=== PATIENT | female | born 1995 | race Caucasian/White ===

== ENCOUNTER 2024-08-18 19:16 | Emergency (ER) | payer OTHER ==
--- OUTSIDE RECORDS SUMMARY | 2024-08-18 19:24 | XMS REPORT | Continuity of Care Document ---
Author Name Unknown Address [address] [facility] [address] [place] [address] Organization [facility] [place] Address [address] [facility] [address] [place] [address] Care Team Providers Care Production Recorder Name Role Phone PCP, PATIENT DOES NOT HAVE A Primary Care Physic josee Unavailable GERARDO RODRIGUEZ Attending Clinician Unavail able Doctor Unassigned, [place] Attending Clinician U TELMA Delgado Attending Clinician UnavailTelma Calabrese CNM Attending Clinician [phone] Gerardo Duval Attending Clinician + Visit, Carlos Nurse Attending Clinician Unava ilSAMUEL Kirk Attending Clinician Unavailable SAMUEL ABDI Attending Clinician Unavailable Jin Samuel ARNETT Attending Clinician [phone] Telma Baltazar CNM Attending Clinician [phone] , [facility] Attending Clinician UnavailHal Roman Attending Clinician + [phone] DIONNE MAYORGA Attending Clinician Unav joseph Garza, Shirleyjomar Attending Clinician Bret Marie MD, Dionne Attending Clinician + Risk, Emp-Qunld-Is/High Attending Clinician Unav ailable MALDONADO, KISHAN N Attending Clinician Unavail able Freddie SALGADO, Kishan Garcia Attending Clinician [phone] ROSARIO LAZCANO Attending Clinician Unavailable ROSARIO LAZCANO Attending Clinician Unavailable Agusto EASON, Rosario Attending Clinician [phone] HAL GRAFF Attending Clinician Unavailable CLARK STRICKLAND Attending Clinician Unavailveena Strickland MD, Clark Benavides Attending Clinician [phone] Doctor Unassigned, [place] Attending Clinician U navailable CHARITY, Elver MCNEIL Attending Clinician Unavailable Charity PAC, K Dee Attending Clinician [phone] MARY CARMEN CHRISTOPHER Attending Clinician Unavailab keyona Christopher REHABILITATION COORDINATOR, Mary Carmen Tolentino Attending Clinician + [phone] Visit, [facility] Nurse Attending Clinician UnaAnnabelle Romo MD Attending Clinician [phone] Akinsipe WHCNP, Gerardo C Attending Clinician + Lab, [facility] Attending Clinician Unavailable ERENDIRA ROLLE Attending Clinician Unavailable Faculty, [facility] Mfjomar Attending Clinician UnaErendira Rhodes MD Attending Clinician [phone] Katrin Weller Attending Clinician [phone] SAGE SWEENEY III Attending Clinician Unavaila ble SAMUEL ABDI Admitting Clinician Unavailable Jin DO, Samuel Admitting Clinician [phone] Clark Strickland MD Admitting Clinician [phone] SAGE SWEENEY III Admitting Clinician Unavaila ble Payers Payer Name Policy Type Policy Number Effective Date Expirati on Date Source [facility] [id number] 2019 00:00:00 Problems Condition Name Condition Details Condition Category Status Onset Date Resolution Date Last Treatment Date Treating Clinician Comments Source History of tubal ligation History of tubal ligation Disease Active 12-26 00:00: 00 [facility] History of asthma History of asthma Disease Active 12-26 00:00: 00 [facility] Morbid obesity Morbid obesity Disease Active 06-22 00:00: 00 [facility] Anxiety and depression Anxiety and depression Disease Active 1-10 00:00: 00 [facility] Obesity affecting Obesity affecting Disease Active - 00:00: 00 [facility] Habitual aborter, antepartum Habitual aborter, antepartum Disease Active 11-19 00:00: 00 [facility] History of ADHD History of ADHD Disease Active 11-19 00:00: 00 [facility] History of ADHD History of ADHD Disease Active 11-19 00:00: 00 [facility] No known active problems No known active problems Disease [facility] Routine follow-up Routine follow-up Disease Resolve d 9-12 00:00: 00 2024-03-15 00:00:00 2024-03-15 13:45:55 [facility] Family history of autism in sibling Family history of autism in sibling Disease Resolve d 1-14 00:00: 00 2024-03-15 00:00:00 2024-03-15 13:45:46 Overview: Formattin g of this note might be different from the original. Brother, declines genetics [facility] Multiparou s Multiparou s Disease Resolve d 1-21 00:00: 00 2024-03-15 00:00:00 2024-03-15 13:45:42 [facility] Habitual aborter, antepartum Habitual aborter, antepartum Disease Resolve d 11-19 00:00: 00 2024-03-15 00:00:00 2024-03-15 13:45:25 [facility] 39 weeks gestation of 39 weeks gestation of Disease Resolve d 8-12 00:00: 00 2024-02-23 00:00:00 2024-02-23 14:50:34 [facility] Previous section Previous section Disease Resolve d 8-12 00:00: 00 2024-02-23 00:00:00 2024-02-23 14:50:08 [facility] Morbid obesity with body mass index of 40.0-49.9 Morbid obesity with body mass index of 40.0-49.9 Disease Resolve d 0 8-12 00:00: 00 2024-02-23 00:00:00 2024-02-23 14:50:25 [facility] Anemia of mother in , antepartum Anemia of mother in , antepartum Disease Resolve d 0 7-30 00:00: 00 2024-02-23 00:00:00 2024-02-23 14:50:33 [facility] GBS (group B Streptococ cus carrier), +RV culture, 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), +RV culture, currently Disease Resolve d 0 7-26 00:00: 00 2024-02-23 00:00:00 2024-02-23 14:50:30 [facility] Previous delivery affecting , antepartum Previous delivery affecting , antepartum Disease Resolve d - 00:00: 00 2024-02-23 00:00:00 2024-02-23 14:50:09 [facility] Uterine size-date discrepanc y in third trimester Uterine size-date discrepanc y in third trimester Disease Resolve d - 00:00: 00 2024-01-03 00:00:00 2024-01-03 11:31:33 [facility] 39 weeks gestation of 39 weeks gestation of Disease Resolve d 1- 00:00: 00 2023-06-22 00:00:00 2023-06-22 12:42:21 [facility] BMI 45.0-49.9, adult BMI 45.0-49.9, adult Disease Resolve d 1-19 00:00: 00 2023-06-22 00:00:00 2023-06-22 12:42:25 [facility] Need for Tdap vaccinatio n Need for Tdap vaccinatio n Disease Resolve d 2019-06- 00:00: 00 2023-06-22 00:00:00 2023-06-22 12:42:31 [facility] Tobacco use affecting in first trimester, antepartum Tobacco use affecting in first trimester, antepartum Disease Resolve d 7-06 00:00: 00 2023-06-22 00:00:00 2023-06-22 12:44:13 [facility] Supervisio n of high risk , antepartum Supervisio n of high risk , antepartum Disease Resolve d 609 00:00: 00 2023-06-22 00:00:00 2023-06-22 12:42:34 [facility] Primigravi da in third trimester Primigravi da in third trimester Disease Resolve d 6 00:00: 00 2023-06-22 00:00:00 2023-06-22 12:42:32 [facility] History of anxiety and depression History of anxiety and depression Disease Resolve d 6 00:00: 2023-06-22 00:00:00 2023-06-22 13:21:00 [facility] History of depression History of depression Disease Resolve d 11-19 00:00: 00 2023-06-22 00:00:00 2023-06-22 12:44:54 [facility] Class 1 obesity with body mass index (BMI) of 31.0 to 31.9 in adult, unspecifie d obesity type, unspecifie d whether serious comorbidit y present Class 1 obesity with body mass index (BMI) of 31.0 to 31.9 in adult, unspecifie d obesity type, unspecifie d whether serious comorbidit y present Disease Resolve d 609 00:00: 00 2023-06-22 00:00:00 2023-06-22 12:42:25 [facility] BMI 38.0-38.9, adult BMI 38.0-38.9, adult Disease Resolve d 6-09 00:00: 00 2023-06-22 00:00:00 2023-06-22 12:42:24 [facility] Allergies, Adverse Reactions, Alerts Allergy Name Allergy Type Status Severity Reaction(s) Onset Date Inactive Date Treating Clinician Comments Source NO KNOWN ALLERGIE S Drug Class Active [facility] Social History Social Habit Start Date Stop Date Quantity Comments Source ASSERTION 2023-05-06 00:00:00 [facility] Exposure to SARS-CoV-2 (event) Not sure [facility] Gender identity [facility] Sexual orientation [facility] History of Social function 2024-03-15 00:00:00 2024-03-15 00:00:00 [facility] Alcoholic beverage intake 2023-11-17 00:00:00 2023-11-17 00:00:00 Current non-drinker of alcohol (finding) [facility] Tobacco use and exposure 2023-11-02 00:00:00 2023-11-02 00:00:00 Smokeless tobacco non-user [facility] Cigarettes smoked current (pack per day) - Reported 2023-11-02 00:00:00 2023-11-02 00:00:00 [facility] Cigarette pack-years 2023-11-02 00:00:00 2023-11-02 00:00:00 [facility] Alcohol intake 2023-10-05 00:00:00 2023-10-05 00:00:00 Current non-drinker of alcohol (finding) [facility] History of tobacco use 2019-02-05 00:00:00 2023-02-05 00:00:00 Cigarette Smoker [facility] Sex assigned at 1995 00:00:00 1995 00:00:00 [facility] Smoking Status Start Date Stop Date Source Ex-smoker 2023-11-02 00:00:00 2023-11-02 00:00:00 [facility] Smokes tobacco daily 2013-03-16 00:00:00 [facility] Medications Ordered Medication Name Filled Medication Name Start Date Stop Date Current Medication? Ordering Clinician Indication Dosage Frequency Signature (SIG) Comments Components Source clotrimazol e 1 % solution 2023-0603 00:00: 00 Yes [id number] Apply to area(s) 2 (two) times daily. [facility] PARoxetine (PAXIL) tablet 20 mg 01-24 02:00: 00 Yes 20mg 20 mg, Oral, QHS, First dose on Tue01/24/24 at 2100, Until Discontinu ed, Routine [facility] docusate (COLACE) capsule 200 mg 01-23 14:00: 00 Yes 200mg 200 mg, Oral, DAILY, First dose on Tue01/24/24 at 0900, Until Discontinu ed, Routine [facility] simethicone (GAS RELIEF (SIMETHICON E)) chewable tablet 160 mg 01-23 01:00: 00 Yes 160mg 160 mg, Oral, TID, First dose on Tue01/23/24 at 2000, Until Discontinu ed, Routine [facility] ibuprofen (IBU) tablet 800 mg 01-23 00:45: 00 Yes 800mg 800 mg, Oral, Q8HA1, First dose on Tue01/23/24 at 1945, Until Discontinu ed, Routine [facility] vitamin w/FA (THRIVITE RX) tablet 01-23 00:00: 00 Yes [id number] 1{tbl} Take 1 tablet by mouth in the morning. [facility] docusate 100 mg capsule 01-23 00:00: 00 03-15 00:00 :00 No [id number] 200mg Take 2 capsules by mouth once daily as needed for Constipati on. [facility] ferrous sulfate 325 mg (65 mg iron) tablet 01-23 00:00: 00 03-15 00:00 :00 No [id number] 325mg Take 1 tablet by mouth in the morning. [facility] ibuprofen 800 mg tablet 01-23 00:00: 00 03-15 00:00 :00 No [id number] 800mg Take 1 tablet by mouth every 8 (eight) hours as needed (pain). Take with food or milk. [facility] acetaminoph en 500 mg tablet 01-23 00:00: 00 03-15 00:00 :00 No [id number] 1000mg Take 2 tablets by mouth every 8 (eight) hours as needed for Pain. [facility] oxyCODONE 5 mg immediate release tablet 01-23 00:00: 00 01-31 04:59 :00 No [id number] 5mg Take 1 tablet by mouth every 6 (six) hours as needed (pain) for up to 7 days. Indication s: acute pain [facility] ketorolac (TORADOL) injection 15 mg 01-23 00:00: 00 01-22 23:10 :00 No 15mg 15 mg, Slow IV Push, ONCE, 1 dose, On Tue01/23/24 at 1900, Routine [facility] acetaminoph en (TYLENOL) tablet 1,000 mg 01-22 22:30: 00 Yes 1000mg 1,000 mg, Oral, Q8H, First dose on Tue01/23/24 at 1730, Until Discontinu ed, Routine [facility] rho(D) immune globulin (RHOPHYLAC) injection 300 mcg 01-22 22:25: 18 Yes 300ug [facility] oxyCODONE immediate release tablet 5 mg 01-22 22:25: 13 Yes 5mg 5 mg, Oral, Q6HPRN, Starting on Tue01/23/24 at 1725, Until Discontinu ed, Routine, Pain (scale 7-10), 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 Restricted medication : OBYWHITE [facility] diphenhydrA MINE (BENADRYL) injection 25 mg 01-22 22:25: 13 Yes 25mg [facility] diphenhydrA MINE (BENADRYL) tablet 25 mg 01-22 22:25: 13 Yes 25mg [facility] ondansetron (ZOFRAN (PF)) injection 4 mg 01-22 22:25: 13 Yes 4mg [facility] bisacodyL (DULCOLAX) suppository 10 mg 01-22 22:25: 13 Yes 10mg [facility] magnesium hydroxide (MILK OF MAGNESIA) 400 mg/5 mL suspension 30 mL 01-22 22:25: 13 Yes 30mL [facility] lactated ringers IV infusion 1,000 mL 01-22 22:25: 13 Yes 1000mL [facility] metoclopram lewis HCl (REGLAN) injection 10 mg 01-22 21:11: 12 01-23 23:52 :35 No 10mg 10 mg, Slow IV Push, Q4HPRN, Starting on Tue01/23/24 at 1611, Until Tue01/24/24 at 1852, Routine, Nausea and Vomiting (N/V) [facility] naloxone (NARCAN) injection 0.4 mg 01-22 21:08: 30 01-24 21:07 :30 No .4mg 0.4 mg, Slow IV Push, PRN - SEE INSTRUCTIO NS, Starting on Tue01/23/24 at 1608, Until Tue01/25/24 at 1607, Routine, Sedation/R espiratory Depression , Analgesia Recovery [facility] diphenhydrA MINE (BENADRYL) injection 25 mg 01-22 21:08: 30 01-23 23:55 :37 No 25mg 25 mg, Slow IV Push, Q4HPRN, Starting on Tue01/23/24 at 1608, Until Tue01/24/24 at 1855, Routine, Itching [facility] acetaminoph en (TYLENOL) tablet 650 mg 01-22 20:38: 42 Yes 650mg 650 mg, Oral, Q6HPRN, Starting on Tue01/23/24 at 1538, Until Discontinu ed, Routine, Pain (scale 1-3) [facility] oxytocin (PITOCIN) 30 units in NS 500 mL IV infusion 01-22 20:38: 42 Yes 300mL/h 300 mL/hr, IV Infusion, SEE-INSTRU CTIONS, Starting on Tue01/23/24 at 1538, Start at 300 mL/hr for 1 hr then 150 mL/hr for 1 hr. For post delivery uterotonic . [facility] lactated ringers IV infusion 1,000 mL 01-22 13:30: 00 Yes 1000mL at 125 mL/hr, 1,000 mL, IV Infusion, CONTINUOUS , Starting on Tue01/23/24 at 0830, Until Discontinu ed, Routine [facility] acetaminoph en (TYLENOL) tablet 650 mg 01-22 13:30: 00 01-22 20:10 :00 No 650mg 650 mg, Oral, ONCE, 1 dose, On Tue01/23/24 at 0830, Routine [facility] ceFAZolin (ANCEF) 2,000 mg in NaCl 0.9% (NS) 100 mL MINI-BAG 01-22 13:24: 20 01-23 13:23 :20 No 2000mg 2,000 mg, IV Piggyback, O.R. 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 [facility] fluconazole (DIFLUCAN) 150 mg tablet 01-04 00:00: 00 01-05 04:59 :00 No [id number] 150mg Take 1 tablet by mouth once now for 1 dose. [facility] PARoxetine 20 mg tablet 6-24 00:00: 00 11-30 04:59 :00 No [id number] 20mg Take 1 tablet by mouth every morning for 360 days. [facility] PARoxetine 20 mg tablet 6-20 00:00: 00 12-04 00:00 :00 No [id number] 20mg Take 1 tablet by mouth in the morning. [facility] Nitrofurant oin&Nit. Macrocryst (MACROBID) 100 mg capsule 30 00:00: 00 11-20 04:59 :00 No 100mg Take 1 capsule by mouth in the morning and 1 capsule in the evening. Do all this for 10 days. [facility] fluconazole 150 mg tablet 24 00:00: 00 10-05 04:59 :00 No [id number] 150mg Take 1 tablet by mouth once now for 1 dose. [facility] PARoxetine 20 mg tablet 3-05 00:00: 00 11-26 00:00 :00 No [id number] 20mg Take 1 tablet by mouth in the morning for 180 days. [facility] PNV 67-iron ps-folate no.1-dha (VITAFOL ULTRA) 29 mg iron- 1 mg-200 mg Cap 07-13 00:00: 00 01-23 00:00 :00 No [id number] 1{tbl} Take 1 tablet by mouth in the morning for 210 days. [facility] PARoxetine 10 mg tablet 07-13 00:00: 00 08-15 00:00 :00 No [id number] 20mg Take 2 tablets by mouth in the morning for 180 days. [facility] hydrOXYzine 10 mg tablet 07-13 00:00: 00 08-06 05:59 :00 No [id number] 109 10mg Take 1 tablet by mouth every 6 (six) hours for 90 doses. [facility] vit no.124/iron /folic ( VITAMIN ORAL) 06-22 13:05: 22 01-23 00:00 :00 No [id number] Take by mouth. [facility] PARoxetine 20 mg tablet 06-22 12:42: 55 06-22 00:00 :00 No 20mg Take 20 mg by mouth at bedtime. [facility] clindamycin (CLEOCIN HCL) capsule 450 mg 12-21 05:15: 00 12-21 04:47 :00 No 450mg 450 mg, Oral, ONCE, 1 dose, On Tue12/21/22 at 0015, JILLIAN
Re ason for Anti-Infec tive: Documented Infection< br>Documen luis a Infection Site: Skin / Soft Tissue
Duration of Therapy: 10 days
Re stricted use approved by: ED PROVIDER [facility] ibuprofen (IBU) tablet 600 mg 12-21 04:30: 00 12-21 04:47 :00 No 600mg 600 mg, Oral, ONCE, 1 dose, On Tue12/20/22 at 2330, JILLIAN [facility] ibuprofen 600 mg tablet 12-20 00:00: 00 06-22 00:00 :00 No [id number] 600mg Take 1 tablet by mouth every 6 (six) hours as needed for Pain (scale 4-6). [facility] mupirocin 2 % ointment 12-20 00:00: 00 06-22 00:00 :00 No [id number] Apply to area(s) 3 (three) times daily. [facility] clindamycin 150 mg capsule 12-20 00:00: 00 12-31 04:59 :00 No [id number] 450mg Take 3 capsules by mouth in the morning and 3 capsules at noon and 3 capsules in the evening. Do all this for 10 days. [facility] ascorbic acid (vitamin C) (VITAMIN C) tablet 500 mg 07-06 20:00: 00 Yes 500mg 500 mg, Oral, TID, First dose on Tue07/06/20 at 1400, Until Discontinu ed, Routine [facility] PARoxetine 20 mg tablet 07-06 19:27: 07 Yes 20mg Take 20 mg by mouth at bedtime. [facility] ferrous sulfate tablet 325 mg 07-06 18:00: 00 Yes 325mg 325 mg, Oral, TID MEALS, First dose on 07/06/20 at 1200, Until Discontinu ed, Routine [facility] foLIC acid (FOLATE) tablet 1 mg 07-06 15:00: 00 Yes 1mg 1 mg, Oral, DAILY, First dose on 07/06/20 at 0900, Until Discontinu ed, Routine [facility] medroxyPROG ESTERone (DEPO-PROVE RA) injection 150 mg 07-06 14:30: 00 07-06 15:21 :00 No 150mg 150 mg, Intramuscu lar, ONCE, 1 dose, 07/06/20 at 0830, Routine [facility] guanFACINE ER 2 mg tablet 07-06 14:21: 47 07-06 00:00 :00 No Take by mouth at bedtime. [facility] PARoxetine 20 mg tablet 07-06 13:27: 07 Yes 20mg Take 20 mg by mouth at bedtime. [facility] PARoxetine (PAXIL) tablet 20 mg 07-06 03:00: 00 Yes 20mg 20 mg, Oral, QHS, First dose on 07/05/20 at 2100, Until Discontinu ed, Routine [facility] vitamin w/FA tablet 07-06 00:00: 00 Yes [id number] 1{tbl} Take 1 tablet by mouth daily. [facility] ascorbic acid, vitamin C, 500 mg tablet 07-06 00:00: 00 06-22 00:00 :00 No [id number] 500mg Take 1 tablet by mouth 3 (three) times daily. [facility] foLIC acid 1 mg tablet 07-06 00:00: 00 06-22 00:00 :00 No [id number] 1mg Take 1 tablet by mouth daily. [facility] ferrous sulfate 325 mg (65 mg iron) tablet 07-06 00:00: 06-22 00:00 :00 No [id number] 325mg Take 1 tablet by mouth 3 (three) times daily with meals. [facility] vitamin w/FA tablet 07-06 00:00: 06-22 00:00 :00 No [id number] 1{tbl} Take 1 tablet by mouth daily. [facility] docusate calcium 240 mg capsule 07-06 00:00: 00 06-22 00:00 :00 No [id number] 240mg Take 1 capsule by mouth once daily as needed for Constipati on. [facility] ibuprofen 600 mg tablet 07-06 00:00: 06-22 00:00 :00 No [id number] 600mg Take 1 tablet by mouth every 6 (six) hours as needed (Pain). Take with food or milk. [facility] HYDROcodone -acetaminop hen 5-325 mg tablet 07-06 00:00: 00 06-22 00:00 :00 No [id number] 1{tbl} Take 1 tablet by mouth every 6 (six) hours as needed (Pain scale above 4) for up to 10 doses. Do not exceed 3 grams of acetaminop hen in 24 hours. Indication s: acute pain [facility] rho(D) immune globulin (RHOGAM) syringe 300 mcg 07-05 15:25: 52 Yes 300ug 300 mcg, Intramuscu lar, ONCE, For 1 dose, Conditiona l, Routine [facility] ondansetron (ZOFRAN (PF)) injection 4 mg 07-05 15:25: 41 Yes 4mg 4 mg, Slow IV Push, Q8HPRN, Starting 07/05/20 at 0925, Until Discontinu ed, Routine, Nausea and Vomiting (N/V) [facility] simethicone (GAS RELIEF (SIMETHICON E)) chewable tablet 160 mg 07-05 15:25: 41 Yes 160mg 160 mg, Oral, PC+HSPRN, Starting 07/05/20 at 0925, Until Discontinu ed, Routine, Gas [facility] magnesium hydroxide (MILK OF MAGNESIA) 400 mg/5 mL suspension 30 mL 07-05 15:25: 41 Yes 30mL 30 mL, Oral, QDAILYPRN, Starting 07/05/20 at 0925, Until Discontinu ed, Routine, Constipati on [facility] HYDROcodone -acetaminop hen (NORCO 5) 5-325 mg tablet 2 tablet 07-05 15:25: 40 Yes 2{tbl} 2 tablet, Oral, Q6HPRN, Starting 07/05/20 at 0925, Until Discontinu ed, Routine, Pain (scale 7-10), If uncontroll ed by Ibuprofen [facility] HYDROcodone -acetaminop hen (NORCO 5) 5-325 mg tablet 1 tablet 07-05 15:25: 40 Yes 1{tbl} 1 tablet, Oral, Q6HPRN, Starting 07/05/20 at 0925, Until Discontinu ed, Routine, Pain (scale 4-6), If uncontroll ed by Ibuprofen [facility] ibuprofen (IBU) tablet 600 mg 07-05 15:25: 40 Yes 600mg 600 mg, Oral, Q6HPRN, Starting 07/05/20 at 0925, Until Discontinu ed, Routine, Pain (scale 1-3) [facility] diphenhydrA MINE-0.9 % sod.chlr (BENADRYL) 25 mg/50 mL piggyback 25 mg 07-05 15:25: 40 Yes 25mg 25 mg, IV Piggyback, Q6HPRN, 1 dose, Starting 07/05/20 at 0925, Until Discontinu ed, 50 mL [facility] diphenhydrA MINE (BENADRYL) tablet 25 mg 07-05 15:25: 40 Yes 25mg 25 mg, Oral, Q6HPRN, Starting 07/05/20 at 0925, Until Discontinu ed, Routine, Sleep, Itching [facility] bisacodyL (DULCOLAX) suppository 10 mg 07-05 15:25: 40 Yes 10mg 10 mg, Rectal, QDAILYPRN, Starting 07/05/20 at 0925, Until Discontinu ed, Routine, Constipati on [facility] docusate calcium (SURFAK) capsule 240 mg 07-05 15:25: 40 Yes 240mg 240 mg, Oral, QDAILYPRN, Starting 07/05/20 at 0925, Until Discontinu ed, Routine, Constipati on [facility] naloxone (NARCAN) injection 0.4 mg 07-05 11:53: 27 07-08 00:14 :19 No .4mg 0.4 mg, Slow IV Push, PRN - SEE INSTRUCTIO NS, Starting 07/05/20 at 0553, Until 07/07/20 at 1814, Routine, Analgesia Recovery [facility] diphenhydrA MINE (BENADRYL) injection 25 mg 07-05 11:53: 27 07-07 00:55 :37 No 25mg 25 mg, Slow IV Push, Q4HPRN, Starting 07/05/20 at 0553, Until 07/06/20 at 1855, Routine, Itching [facility] ketorolac (TORADOL) injection 30 mg 07-05 11:53: 26 07-05 12:38 :00 No 30mg 30 mg, Slow IV Push, PRN, 1 dose, Starting 07/05/20 at 0553, Until Discontinu ed, Routine, Pain (scale 7-10)
F aculty member approving Restricted medication : KIKA FOFANA [facility] LR 1000 mL + oxytocin 20 units IV Solution 07-05 10:45: 00 07-05 15:25 :53 No 2mU/min at 6 mL/hr, IV Infusion, CONTINUOUS , Starting 07/05/20 at 0445, Until 07/05/20 at 0925, JILLIAN [facility] sodium citrate-cit alban acid (BICITRA) 500-334 mg/5 mL solution 30 mL 07-05 10:35: 32 07-05 10:56 :00 No 30mL 30 mL, Oral, PRE-PROCED URE ONCE, 1 dose, Starting 07/05/20 at 0435, Until Discontinu ed, Routine, Surgery [facility] ceFAZolin in dextrose (iso-os) (ANCEF) 2 gram/100 mL Piggyback 2 g 07-05 10:35: 32 07-05 10:57 :00 No 2000mg 2 g (2,000 mg), IV Piggyback, O.R. HOLDING ONCE, 1 dose, Starting 07/05/20 at 0435, Until Discontinu ed, 100 mL
Reas on for Anti-Infec tive: Surgical Prophylaxi s
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
Duration of therapy: within 24 hours of surgery [facility] butorphanol (STADOL) injection 1 mg 07-04 17:45: 00 07-04 16:37 :00 No 1mg 1 mg, IV Push, ONCE, 1 dose, 07/04/20 at 1145, Routine [facility] LR 1000 mL + oxytocin 20 units IV Solution 07-04 14:25: 52 07-05 15:25 :53 No 2mU/min at 6-120 mL/hr, IV Infusion, TITRATE, Starting 07/04/20 at 0825, Until 07/05/20 at 0925, [facility] 1 mg 07-04 06:47: 00 07-04 07:07 :00 No 1mg 1 mg, IV Push, ONCE, 1 dose, 07/04/20 at 0100, Routine [facility] D5W-LR IV infusion 1,000 mL 07-04 01:15: 00 07-05 15:25 :53 No 1000mL at 125 mL/hr, IV Infusion, CONTINUOUS , Starting Liya 07/03/20 at 1915, Until 07/05/20 at 0925, Routine [facility] sodium citrate-cit alban acid (BICITRA) 500-334 mg/5 mL solution 30 mL 07-04:01: 07-05 07:11 :00 No 30mL 30 mL, Oral, PRE-PROCED URE ONCE, 1 dose, Starting Liya 07/03/20 at 1901, Until Discontinu ed, Routine, Surgery/Pr ocedure [facility] lactated ringers IV infusion 500 mL 07-04 01:01: 07-05 15:25 :53 No 500mL at 999 mL/hr, 500 mL, IV Infusion, PRN - SEE INSTRUCTIO NS, Starting Liya 07/03/20 at 1901, Until 07/05/20 at 0925, Routine [facility] amphetamine -dextroamph etamine (ADDERALL XR) 30 mg 24 hr capsule 2019-06 14:53: 44 05-19 00:00 :00 No 30mg Take 30 mg by mouth every morning. [facility] amphetamine -dextroamph etamine (ADDERALL XR) 30 mg 24 hr capsule 12-02 14:42: 55 Yes 30mg Take 30 mg by mouth every morning. [facility] vit 33-iron-fol ic-dha (SELECT-OB + DHA) 29 mg iron-1 mg -250 mg combo pack 11-27 00:00: 00 07-06 00:00 :00 No [id number] 1{packe t} Take 1 Packet by mouth daily. [facility] terconazole 80 mg vaginal suppository 11-21 00:00: 00 11-25 04:59 :00 No [id number] 80mg Insert 1 Suppositor y into vagina at bedtime for 3 days. [facility] guanFACINE ER 2 mg tablet 11-19 16:08: 12 Yes Take by mouth at bedtime. [facility] PARoxetine 20 mg tablet 11-19 16:08: 12 Yes 20mg Take 20 mg by mouth at bedtime. [facility] amphetamine -dextroamph etamine (ADDERALL XR) 30 mg 24 hr capsule 11-19 16:08: 12 Yes 30mg Take 30 mg by mouth every morning. [facility] traMADol (ULTRAM) 50 mg tablet 2018-06 2-15 00:00: 00 11-19 00:00 :00 No [id number] 50mg Take 1 tablet by mouth every 8 (eight) hours as needed for Pain (scale 4-6). [facility] No known medications No Un [facility] Immunizations Ordered Immunization Name Filled Immunization Name Date Status Comments Source Flu Injectable MDCK Pres-Free (FLUCELVAX) 2024-03-15 00:00:00 Completed [facility] HPV9 2024-01-24 00:00:00 Completed [facility] HPV9 2024-01-24 00:00:00 Completed [facility] Influenza Virus Vaccine Quad .5 mL IM 6+ MO (FLUZONE/FLULAVAL/F LUARIX) 2020-05-19 00:00:00 Completed [facility] Influenza Virus Vaccine Quad .5 mL IM 6+ MO (FLUZONE/FLULAVAL/F LUARIX) 2020-05-19 00:00:00 Completed [facility] Influenza Virus Vaccine Quad .5 mL IM 6+ MO (FLUZONE/FLULAVAL/F LUARIX) 2020-05-19 00:00:00 Completed [facility] Influenza Virus Vaccine Quad .5 mL IM 6+ MO 2020-05-19 00:00:00 Completed [facility] Influenza Virus Vaccine Quad .5 mL IM 6+ MO 2020-05-19 00:00:00 Completed [facility] Influenza Virus Vaccine Quad .5 mL IM 6+ MO 2020-05-19 00:00:00 Completed [facility] Influenza Virus Vaccine Quad .5 mL IM 6+ MO 2020-05-19 00:00:00 Completed [facility] Influenza Virus Vaccine Quad .5 mL IM 6+ MO 2020-05-19 00:00:00 Completed [facility] Influenza Virus Vaccine Quad .5 mL IM 6+ MO 2020-05-19 00:00:00 Completed [facility] Influenza Virus Vaccine Quad .5 mL IM 6+ MO 2020-05-19 00:00:00 Completed [facility] Influenza Virus Vaccine Quad .5 mL IM 6+ MO 2020-05-19 00:00:00 Completed [facility] Influenza Virus Vaccine Quad .5 mL IM 6+ MO 2020-05-19 00:00:00 Completed [facility] Influenza Virus Vaccine Quad .5 mL IM 6+ MO 2020-05-19 00:00:00 Completed [facility] Influenza Virus Vaccine Quad .5 mL IM 6+ MO 2020-05-19 00:00:00 Completed [facility] Influenza Virus Vaccine Quad .5 mL IM 6+ MO 2020-05-19 00:00:00 Completed [facility] Influenza Virus Vaccine Quad .5 mL IM 6+ MO 2020-05-19 00:00:00 Completed [facility] TDAP 2020-04-21 00:00:00 Completed [facility] TDAP 2020-04-21 00:00:00 Completed [facility] TDAP 2020-04-21 00:00:00 Completed [facility] TDAP 2020-04-21 00:00:00 Completed [facility] TDAP 2020-04-21 00:00:00 Completed [facility] TDAP 2020-04-21 00:00:00 Completed [facility] TDAP 2020-04-21 00:00:00 Completed [facility] TDAP 2020-04-21 00:00:00 Completed [facility] TDAP 2020-04-21 00:00:00 Completed [facility] TDAP 2020-04-21 00:00:00 Completed [facility] [place] TDAP 2020-04-21 00:00:00 Completed [facility] TDAP 2020-04-21 00:00:00 Completed [facility] TDAP 2020-04-21 00:00:00 Completed [facility] TDAP 2020-04-21 00:00:00 Completed [facility] [place] TDAP 2020-04-21 00:00:00 Completed [facility] TDAP 2020-04-21 00:00:00 Completed [facility] TDAP 2020-04-21 00:00:00 Completed [facility] TDAP 2020-04-21 00:00:00 Completed [facility] HPV9 2017-12-02 00:00:00 Completed TDAP 2017-12-02 00:00:00 Completed HPV9 2017-12-02 00:00:00 Completed TDAP 2017-12-02 00:00:00 Completed HPV9 2017-12-02 00:00:00 Completed TDAP 2017-12-02 00:00:00 Completed HPV9 2017-12-02 00:00:00 Completed [facility] TDAP 2017-12-02 00:00:00 Completed [facility] HPV9 2017-12-02 00:00:00 Completed [facility] TDAP 2017-12-02 00:00:00 Completed [facility] HPV9 2017-12-02 00:00:00 Completed [facility] TDAP 2017-12-02 00:00:00 Completed [facility] HPV9 2017-12-02 00:00:00 Completed [facility] TDAP 2017-12-02 00:00:00 Completed [facility] HPV9 2017-12-02 00:00:00 Completed [facility] TDAP 2017-12-02 00:00:00 Completed [facility] HPV9 2017-12-02 00:00:00 Completed [facility] TDAP 2017-12-02 00:00:00 Completed [facility] HPV9 2017-12-02 00:00:00 Completed [facility] TDAP 2017-12-02 00:00:00 Completed [facility] HPV9 2017-12-02 00:00:00 Completed [facility] TDAP 2017-12-02 00:00:00 Completed [facility] HPV9 2017-12-02 00:00:00 Completed [facility] TDAP 2017-12-02 00:00:00 Completed [facility] HPV9 2017-12-02 00:00:00 Completed [facility] TDAP 2017-12-02 00:00:00 Completed [facility] HPV9 2017-12-02 00:00:00 Completed [facility] TDAP 2017-12-02 00:00:00 Completed [facility] HPV9 2017-12-02 00:00:00 Completed [facility] TDAP 2017-12-02 00:00:00 Completed [facility] HPV9 2017-12-02 00:00:00 Completed [facility] TDAP 2017-12-02 00:00:00 Completed [facility] TDAP Unknown Completed [facility] Influenza Virus Vaccine Quad .5 mL IM 6+ MO (FLUZONE/FLULAVAL/F LUARIX) Unknown Completed [facility] HPV9 Unknown Completed [facility] TDAP Unknown Completed [facility] Influenza Virus Vaccine Quad .5 mL IM 6+ MO (FLUZONE/FLULAVAL/F LUARIX) Unknown Completed [facility] HPV9 Unknown Completed [facility] TDAP Unknown Completed [facility] Influenza Virus Vaccine Quad .5 mL IM 6+ MO (FLUZONE/FLULAVAL/F LUARIX) Unknown Completed [facility] HPV9 Unknown Completed [facility] TDAP Unknown Completed [facility] Influenza Virus Vaccine Quad .5 mL IM 6+ MO (FLUZONE/FLULAVAL/F LUARIX) Unknown Completed [facility] HPV9 Unknown Completed [facility] TDAP Unknown Completed [facility] Influenza Virus Vaccine Quad .5 mL IM 6+ MO (FLUZONE/FLULAVAL/F LUARIX) Unknown Completed [facility] HPV9 Unknown Completed [facility] TDAP Unknown Completed [facility] Influenza Virus Vaccine Quad .5 mL IM 6+ MO (FLUZONE/FLULAVAL/F LUARIX) Unknown Completed [facility] HPV9 Unknown Completed [facility] TDAP Unknown Completed [facility] Influenza Virus Vaccine Quad .5 mL IM 6+ MO (FLUZONE/FLULAVAL/F LUARIX) Unknown Completed [facility] HPV9 Unknown Completed [facility] TDAP Unknown Completed [facility] Influenza Virus Vaccine Quad .5 mL IM 6+ MO (FLUZONE/FLULAVAL/F LUARIX) Unknown Completed [facility] HPV9 Unknown Completed [facility] TDAP Unknown Completed [facility] Influenza Virus Vaccine Quad .5 mL IM 6+ MO (FLUZONE/FLULAVAL/F LUARIX) Unknown Completed [facility] HPV9 Unknown Completed [facility] TDAP Unknown Completed [facility] Influenza Virus Vaccine Quad .5 mL IM 6+ MO (FLUZONE/FLULAVAL/F LUARIX) Unknown Completed [facility] HPV9 Unknown Completed [facility] TDAP Unknown Completed [facility] Influenza Virus Vaccine Quad .5 mL IM 6+ MO (FLUZONE/FLULAVAL/F LUARIX) Unknown Completed [facility] HPV9 Unknown Completed [facility] TDAP Unknown Completed [facility] Influenza Virus Vaccine Quad .5 mL IM 6+ MO (FLUZONE/FLULAVAL/F LUARIX) Unknown Completed [facility] HPV9 Unknown Completed [facility] TDAP Unknown Completed [facility] Influenza Virus Vaccine Quad .5 mL IM 6+ MO (FLUZONE/FLULAVAL/F LUARIX) Unknown Completed [facility] HPV9 Unknown Completed [facility] TDAP Unknown Completed [facility] Influenza Virus Vaccine Quad .5 mL IM 6+ MO (FLUZONE/FLULAVAL/F LUARIX) Unknown Completed [facility] HPV9 Unknown Completed [facility] Influenza Virus Vaccine Quad .5 mL IM 6+ MO (FLUZONE/FLULAVAL/F LUARIX) Unknown Completed [facility] HPV9 Unknown Completed [facility] TDAP Unknown Completed [facility] Influenza Virus Vaccine Quad .5 mL IM 6+ MO (FLUZONE/FLULAVAL/F LUARIX) Unknown Completed [facility] HPV9 Unknown Completed [facility] TDAP Unknown Completed [facility] Influenza Virus Vaccine Quad .5 mL IM 6+ MO (FLUZONE/FLULAVAL/F LUARIX) Unknown Completed [facility] HPV9 Unknown Completed [facility] TDAP Unknown Completed [facility] TDAP Unknown Completed [facility] Influenza Virus Vaccine Quad .5 mL IM 6+ MO (FLUZONE/FLULAVAL/F LUARIX) Unknown Completed [facility] HPV9 Unknown Completed [facility] TDAP Unknown Completed [facility] Influenza Virus Vaccine Quad .5 mL IM 6+ MO (FLUZONE/FLULAVAL/F LUARIX) Unknown Completed [facility] HPV9 Unknown Completed [facility] TDAP Unknown Completed [facility] Influenza Virus Vaccine Quad .5 mL IM 6+ MO (FLUZONE/FLULAVAL/F LUARIX) Unknown Completed [facility] HPV9 Unknown Completed [facility] TDAP Unknown Completed [facility] Influenza Virus Vaccine Quad .5 mL IM 6+ MO (FLUZONE/FLULAVAL/F LUARIX) Unknown Completed [facility] HPV9 Unknown Completed [facility] TDAP Unknown Completed [facility] Influenza Virus Vaccine Quad .5 mL IM 6+ MO (FLUZONE/FLULAVAL/F LUARIX) Unknown Completed [facility] HPV9 Unknown Completed [facility] TDAP Unknown Completed [facility] Influenza Virus Vaccine Quad .5 mL IM 6+ MO (FLUZONE/FLULAVAL/F LUARIX) Unknown Completed [facility] HPV9 Unknown Completed [facility] TDAP Unknown Completed [facility] Influenza Virus Vaccine Quad .5 mL IM 6+ MO (FLUZONE/FLULAVAL/F LUARIX) Unknown Completed [facility] HPV9 Unknown Completed [facility] TDAP Unknown Completed [facility] Influenza Virus Vaccine Quad .5 mL IM 6+ MO (FLUZONE/FLULAVAL/F LUARIX) Unknown Completed [facility] HPV9 Unknown Completed [facility] TDAP Unknown Completed [facility] Influenza Virus Vaccine Quad .5 mL IM 6+ MO (FLUZONE/FLULAVAL/F LUARIX) Unknown Completed [facility] HPV9 Unknown Completed [facility] TDAP Unknown Completed [facility] Influenza Virus Vaccine Quad .5 mL IM 6+ MO (FLUZONE/FLULAVAL/F LUARIX) Unknown Completed [facility] HPV9 Unknown Completed [facility] TDAP Unknown Completed [facility] Influenza Virus Vaccine Quad .5 mL IM 6+ MO (FLUZONE/FLULAVAL/F LUARIX) Unknown Completed [facility] HPV9 Unknown Completed [facility] TDAP Unknown Completed [facility] Influenza Virus Vaccine Quad .5 mL IM 6+ MO (FLUZONE/FLULAVAL/F LUARIX) Unknown Completed [facility] HPV9 Unknown Completed [facility] TDAP Unknown Completed [facility] Influenza Virus Vaccine Quad .5 mL IM 6+ MO (FLUZONE/FLULAVAL/F LUARIX) Unknown Completed [facility] HPV9 Unknown Completed [facility] TDAP Unknown Completed [facility] Influenza Virus Vaccine Quad .5 mL IM 6+ MO (FLUZONE/FLULAVAL/F LUARIX) Unknown Completed [facility] HPV9 Unknown Completed [facility] TDAP Unknown Completed [facility] Influenza Virus Vaccine Quad .5 mL IM 6+ MO (FLUZONE/FLULAVAL/F LUARIX) Unknown Completed [facility] HPV9 Unknown Completed [facility] TDAP Unknown Completed [facility] Influenza Virus Vaccine Quad .5 mL IM 6+ MO (FLUZONE/FLULAVAL/F LUARIX) Unknown Completed [facility] HPV9 Unknown Completed [facility] TDAP Unknown Completed [facility] Influenza Virus Vaccine Quad .5 mL IM 6+ MO (FLUZONE/FLULAVAL/F LUARIX) Unknown Completed [facility] HPV9 Unknown Completed [facility] TDAP Unknown Completed [facility] Influenza Virus Vaccine Quad .5 mL IM 6+ MO (FLUZONE/FLULAVAL/F LUARIX) Unknown Completed [facility] HPV9 Unknown Completed [facility] TDAP Unknown Completed [facility] Influenza Virus Vaccine Quad .5 mL IM 6+ MO (FLUZONE/FLULAVAL/F LUARIX) Unknown Completed [facility] HPV9 Unknown Completed [facility] TDAP Unknown Completed [facility] Influenza Virus Vaccine Quad .5 mL IM 6+ MO (FLUZONE/FLULAVAL/F LUARIX) Unknown Completed [facility] HPV9 Unknown Completed [facility] TDAP Unknown Completed [facility] Influenza Virus Vaccine Quad .5 mL IM 6+ MO (FLUZONE/FLULAVAL/F LUARIX) Unknown Completed [facility] HPV9 Unknown Completed [facility] TDAP Unknown Completed [facility] Influenza Virus Vaccine Quad .5 mL IM 6+ MO (FLUZONE/FLULAVAL/F LUARIX) Unknown Completed [facility] HPV9 Unknown Completed [facility] TDAP Unknown Completed [facility] Influenza Virus Vaccine Quad .5 mL IM 6+ MO (FLUZONE/FLULAVAL/F LUARIX) Unknown Completed [facility] HPV9 Unknown Completed [facility] TDAP Unknown Completed [facility] Influenza Virus Vaccine Quad .5 mL IM 6+ MO (FLUZONE/FLULAVAL/F LUARIX) Unknown Completed [facility] HPV9 Unknown Completed [facility] TDAP Unknown Completed [facility] Influenza Virus Vaccine Quad .5 mL IM 6+ MO (FLUZONE/FLULAVAL/F LUARIX) Unknown Completed [facility] HPV9 Unknown Completed [facility] TDAP Unknown Completed [facility] Influenza Virus Vaccine Quad .5 mL IM 6+ MO (FLUZONE/FLULAVAL/F LUARIX) Unknown Completed [facility] HPV9 Unknown Completed [facility] TDAP Unknown Completed [facility] Influenza Virus Vaccine Quad .5 mL IM 6+ MO (FLUZONE/FLULAVAL/F LUARIX) Unknown Completed [facility] HPV9 Unknown Completed [facility] TDAP Unknown Completed [facility] Influenza Virus Vaccine Quad .5 mL IM 6+ MO (FLUZONE/FLULAVAL/F LUARIX) Unknown Completed [facility] HPV9 Unknown Completed [facility] TDAP Unknown Completed [facility] Influenza Virus Vaccine Quad .5 mL IM 6+ MO (FLUZONE/FLULAVAL/F LUARIX) Unknown Completed [facility] HPV9 Unknown Completed [facility] TDAP Unknown Completed [facility] Influenza Virus Vaccine Quad .5 mL IM 6+ MO (FLUZONE/FLULAVAL/F LUARIX) Unknown Completed [facility] HPV9 Unknown Completed [facility] Influenza Virus Vaccine Quad .5 mL IM 6+ MO (FLUZONE/FLULAVAL/F LUARIX) Unknown Completed [facility] HPV9 Unknown Completed [facility] TDAP Unknown Completed [facility] Vital Signs Vital Name Observation Time Observation Value Comments S ource Systolic blood pressure 2024-03-15 18:29:00 125 mm[Hg] [facility] Diastolic blood pressure 2024-03-15 18:29:00 76 mm[Hg] [facility] Heart rate 2024-03-15 18:29:00 96 /min [facility] Body temperature 2024-03-15 18:29:00 36.83 [facility] Respiratory rate 2024-03-15 18:29:00 20 /min [facility] Body height 2024-03-15 18:29:00 165.1 cm [facility] Body weight 2024-03-15 18:29:00 113.428 kg [facility] BMI 2024-03-15 18:29:00 41.61 kg/m2 [facility] Systolic blood pressure 2024-02-23 19:27:00 124 mm[Hg] [facility] Diastolic blood pressure 2024-02-23 19:27:00 74 mm[Hg] [facility] Heart rate 2024-02-23 19:27:00 98 /min [facility] Body temperature 2024-02-23 19:27:00 36.28 [facility] Respiratory rate 2024-02-23 19:27:00 18 /min [facility] Body height 2024-02-23 19:27:00 165.1 cm [facility] Body weight 2024-02-23 19:27:00 112.038 kg [facility] BMI 2024-02-23 19:27:00 41.10 kg/m2 [facility] Systolic blood pressure 2024-01-30 19:16:00 118 mm[Hg] [facility] Diastolic blood pressure 2024-01-30 19:16:00 71 mm[Hg] [facility] Heart rate 2024-01-30 19:16:00 84 /min [facility] Body temperature 2024-01-30 19:16:00 36.72 [facility] Respiratory rate 2024-01-30 19:16:00 18 /min [facility] Body height 2024-01-30 19:16:00 165.1 cm [facility] Body weight 2024-01-30 19:16:00 117.436 kg [facility] BMI 2024-01-30 19:16:00 43.08 kg/m2 [facility] Systolic blood pressure 2024-01-24 20:21:00 104 mm[Hg] [facility] Diastolic blood pressure 2024-01-24 20:21:00 56 mm[Hg] [facility] Heart rate 2024-01-24 20:21:00 102 /min [facility] Body temperature 2024-01-24 20:21:00 36.83 [facility] Respiratory rate 2024-01-24 20:21:00 18 /min [facility] Oxygen saturation in Arterial blood by Pulse oximetry 2024-01-24 20:21:00 98 /min [facility] Body height 2024-01-23 12:51:00 165.1 cm [facility] Body weight 2024-01-23 12:51:00 117.527 kg [facility] BMI 2024-01-23 12:51:00 43.12 kg/m2 [facility] Systolic blood pressure 2024-01-23 15:00:00 123 mm[Hg] [facility] Diastolic blood pressure 2024-01-23 15:00:00 76 mm[Hg] [facility] Heart rate 2024-01-23 15:00:00 97 /min [facility] Oxygen saturation in Arterial blood by Pulse oximetry 2024-01-23 15:00:00 98 /min [facility] Respiratory rate 2024-01-23 14:00:00 18 /min [facility] Body temperature 2024-01-23 13:00:00 36.56 [facility] Body height 2024-01-23 12:51:00 165.1 cm [facility] Body weight 2024-01-23 12:51:00 117.527 kg [facility] BMI 2024-01-23 12:51:00 43.12 kg/m2 [facility] Systolic blood pressure 2024-01-18 15:25:00 121 mm[Hg] [facility] Diastolic blood pressure 2024-01-18 15:25:00 78 mm[Hg] [facility] Heart rate 2024-01-18 15:25:00 100 /min [facility] Body temperature 2024-01-18 15:25:00 36.61 [facility] Respiratory rate 2024-01-18 15:25:00 18 /min [facility] Body height 2024-01-18 15:25:00 165.1 cm [facility] Body weight 2024-01-18 15:25:00 116.716 kg [facility] BMI 2024-01-18 15:25:00 42.82 kg/m2 [facility] Systolic blood pressure 2024-01-10 15:57:00 127 mm[Hg] [facility] Diastolic blood pressure 2024-01-10 15:57:00 74 mm[Hg] [facility] Heart rate 2024-01-10 15:57:00 97 /min [facility] Body temperature 2024-01-10 15:57:00 36.72 [facility] Respiratory rate 2024-01-10 15:57:00 18 /min [facility] Body height 2024-01-10 15:57:00 165.1 cm [facility] Body weight 2024-01-10 15:57:00 116.149 kg [facility] BMI 2024-01-10 15:57:00 42.61 kg/m2 [facility] Systolic blood pressure 2024-01-03 15:18:00 129 mm[Hg] [facility] Diastolic blood pressure 2024-01-03 15:18:00 75 mm[Hg] [facility] Heart rate 2024-01-03 15:18:00 92 /min [facility] Body temperature 2024-01-03 15:18:00 36.83 [facility] Respiratory rate 2024-01-03 15:18:00 18 /min [facility] Body height 2024-01-03 15:18:00 165.1 cm [facility] Body weight 2024-01-03 15:18:00 117.68 kg [facility] BMI 2024-01-03 15:18:00 43.17 kg/m2 [facility] Systolic blood pressure 2023-12-27 21:19:00 106 mm[Hg] [facility] Diastolic blood pressure 2023-12-27 21:19:00 75 mm[Hg] [facility] Heart rate 2023-12-27 21:19:00 102 /min [facility] Body temperature 2023-12-27 21:19:00 36.83 [facility] Respiratory rate 2023-12-27 21:19:00 18 /min [facility] Body height 2023-12-27 21:19:00 165.1 cm [facility] Body weight 2023-12-27 21:19:00 114.391 kg [facility] BMI 2023-12-27 21:19:00 41.97 kg/m2 [facility] Systolic blood pressure 2023-12-07 15:30:00 115 mm[Hg] [facility] [facility] Di[facility] blood pressure 2023-12-07 15:30:00 71 mm[Hg] [facility] Heart rate 2023-12-07 15:30:00 97 /min [facility] Body temperature 2023-12-07 15:30:00 36.5 [facility] Respiratory rate 2023-12-07 15:30:00 18 /min [facility] Body height 2023-12-07 15:30:00 165.1 cm [facility] Body weight 2023-12-07 15:30:00 113.309 kg [facility] BMI 2023-12-07 15:30:00 41.57 kg/m2 [facility] Systolic blood pressure 2023-11-17 19:21:00 123 mm[Hg] [facility] Diastolic blood pressure 2023-11-17 19:21:00 73 mm[Hg] [facility] Heart rate 2023-11-17 19:21:00 105 /min [facility] Body temperature 2023-11-17 19:21:00 37.11 [facility] Respiratory rate 2023-11-17 19:21:00 18 /min [facility] Body height 2023-11-17 19:21:00 165.1 cm [facility] Body weight 2023-11-17 19:21:00 110.706 kg [facility] BMI 2023-11-17 19:21:00 40.61 kg/m2 [facility] Systolic blood pressure 2023-11-02 14:49:00 109 mm[Hg] [facility] Diastolic blood pressure 2023-11-02 14:49:00 73 mm[Hg] [facility] Heart rate 2023-11-02 14:49:00 104 /min [facility] 2023-11-02 14:49:00 36.78 [facility] Respiratory rate 2023-11-02 14:49:00 18 /min [facility] Body height 2023-11-02 14:49:00 165.1 cm [facility] Body weight 2023-11-02 14:49:00 111.216 kg [facility] BMI 2023-11-02 14:49:00 40.80 kg/m2 [facility] Systolic blood pressure 2023-10-19 14:53:00 110 mm[Hg] [facility] Diastolic blood pressure 2023-10-19 14:53:00 60 mm[Hg] [facility] Heart rate 2023-10-19 14:53:00 96 /min [facility] Body temperature 2023-10-19 14:53:00 36.94 [facility] Respiratory rate 2023-10-19 14:53:00 18 /min [facility] Body height 2023-10-19 14:53:00 165.1 cm [facility] 2023-10-19 14:53:00 110.542 kg [facility] BMI 2023-10-19 14:53:00 40.55 kg/m2 [facility] Systolic blood pressure 2023-10-05 16:10:00 105 mm[Hg] [facility] Diastolic blood pressure 2023-10-05 16:10:00 74 mm[Hg] [facility] Heart rate 2023-10-05 16:10:00 98 /min [facility] Body temperature 2023-10-05 16:10:00 36.61 [facility] Respiratory rate 2023-10-05 16:10:00 18 /min [facility] Body height 2023-10-05 16:10:00 165.1 cm [facility] Body weight 2023-10-05 16:10:00 108.591 kg [facility] BMI 2023-10-05 16:10:00 39.84 kg/m2 [facility] Systolic blood pressure 2023-09-21 16:15:00 125 mm[Hg] [facility] Diastolic blood pressure 2023-09-21 16:15:00 64 mm[Hg] [facility] Heart rate 2023-09-21 16:15:00 106 /min [facility] Body temperature 2023-09-21 16:15:00 36.72 [facility] Respiratory rate 2023-09-21 16:15:00 18 /min [facility] Body height 2023-09-21 16:15:00 165.1 cm [facility] Body weight 2023-09-21 16:15:00 106.312 kg [facility] BMI 2023-09-21 16:15:00 39.00 kg/m2 [facility] Systolic blood pressure 2023-08-31 20:29:00 113 mm[Hg] [facility] Diastolic blood pressure 2023-08-31 20:29:00 74 mm[Hg] [facility] Heart rate 2023-08-31 20:29:00 96 /min [facility] Body temperature 2023-08-31 20:29:00 36.39 [facility] Respiratory rate 2023-08-31 20:29:00 18 /min [facility] Body height 2023-08-31 20:29:00 165.1 cm [facility] Body weight 2023-08-31 20:29:00 103.602 kg [facility] BMI 2023-08-31 20:29:00 38.01 kg/m2 [facility] Systolic blood pressure 2023-08-17 17:29:00 125 mm[Hg] [facility] Diastolic blood pressure 2023-08-17 17:29:00 60 mm[Hg] [facility] Heart rate 2023-08-17 17:29:00 98 /min [facility] Body temperature 2023-08-17 17:29:00 36.67 [facility] Respiratory rate 2023-08-17 17:29:00 17 /min [facility] Body height 2023-08-17 17:29:00 165.1 cm [facility] Body weight 2023-08-17 17:29:00 103.012 kg [facility] BMI 2023-08-17 17:29:00 37.79 kg/m2 [facility] Systolic blood pressure 2023-07-27 19:24:00 125 mm[Hg] [facility] Diastolic blood pressure 2023-07-27 19:24:00 82 mm[Hg] [facility] Heart rate 2023-07-27 19:24:00 98 /min [facility] Body temperature 2023-07-27 19:24:00 36.89 [facility] Respiratory rate 2023-07-27 19:24:00 18 /min [facility] Body height 2023-07-27 19:24:00 165.1 cm [facility] Body weight 2023-07-27 19:24:00 99.961 kg [facility] BMI 2023-07-27 19:24:00 36.67 kg/m2 [facility] Systolic blood pressure 2023-07-13 19:17:00 128 mm[Hg] [facility] Diastolic blood pressure 2023-07-13 19:17:00 73 mm[Hg] [facility] Heart rate 2023-07-13 19:17:00 95 /min [facility] Body temperature 2023-07-13 19:17:00 37.17 [facility] Respiratory rate 2023-07-13 19:17:00 18 /min [facility] Body height 2023-07-13 19:17:00 165.1 cm [facility] 2023-07-13 19:17:00 98.629 kg [facility] BMI 2023-07-13 19:17:00 36.18 kg/m2 [facility] Systolic blood pressure 2023-06-22 19:00:00 105 mm[Hg] [facility] Diastolic blood pressure 2023-06-22 19:00:00 73 mm[Hg] [facility] Heart rate 2023-06-22 19:00:00 94 /min [facility] Body temperature 2023-06-22 19:00:00 36.72 [facility] Respiratory rate 2023-06-22 19:00:00 19 /min [facility] Body height 2023-06-22 19:00:00 165.1 cm [facility] Body weight 2023-06-22 19:00:00 95.255 kg [facility] BMI 2023-06-22 19:00:00 34.95 kg/m2 [facility] Systolic blood pressure 2022-12-21 03:37:00 139 mm[Hg] [facility] Diastolic blood pressure 2022-12-21 03:37:00 73 mm[Hg] [facility] Heart rate 2022-12-21 03:37:00 99 /min [facility] Body temperature 2022-12-21 03:37:00 36.72 [facility] Respiratory rate 2022-12-21 03:37:00 18 /min [facility] Body height 2022-12-21 03:37:00 165.1 cm [facility] 2022-12-21 03:37:00 73.619 kg [facility] BMI 2022-12-21 03:37:00 27.01 kg/m2 [facility] Oxygen saturation in Arterial blood by Pulse oximetry 2022-12-21 03:37:00 99 /min [facility] Systolic blood pressure 2020-07-11 14:52:00 134 mm[Hg] [facility] Diastolic blood pressure 2020-07-11 14:52:00 84 mm[Hg] [facility] Heart rate 2020-07-11 14:52:00 96 /min [facility] Body temperature 2020-07-11 14:52:00 36.78 [facility] Respiratory rate 2020-07-11 14:52:00 16 /min [facility] Body height 2020-07-11 14:52:00 165.1 cm [facility] Body weight 2020-07-11 14:52:00 108.41 kg [facility] BMI 2020-07-11 14:52:00 39.77 kg/m2 [facility] Systolic blood pressure 2020-07-06 14:07:00 106 mm[Hg] [facility] Diastolic blood pressure 2020-07-06 14:07:00 66 mm[Hg] [facility] Heart rate 2020-07-06 14:07:00 95 /min [facility] Body temperature 2020-07-06 14:07:00 35.56 [facility] Respiratory rate 2020-07-06 14:07:00 18 /min [facility] Oxygen saturation in Arterial blood by Pulse oximetry 2020-07-06 14:07:00 100 /min [facility] Body height 2020-07-04 00:15:00 165.1 cm [facility] Body weight 2020-07-04 00:15:00 108.863 kg [facility] BMI 2020-07-04 00:15:00 39.94 kg/m2 [facility] Systolic blood pressure 2020-07-01 15:07:00 124 mm[Hg] [facility] Diastolic blood pressure 2020-07-01 15:07:00 72 mm[Hg] [facility] Heart rate 2020-07-01 15:07:00 84 /min [facility] Body temperature 2020-07-01 15:07:00 36.44 [facility] Respiratory rate 2020-07-01 15:07:00 16 /min [facility] Body height 2020-07-01 15:07:00 154.9 cm [facility] Body weight 2020-07-01 15:07:00 109.09 kg [facility] BMI 2020-07-01 15:07:00 45.44 kg/m2 [facility] Systolic blood pressure 2020-06-24 13:51:00 125 mm[Hg] [facility] Diastolic blood pressure 2020-06-24 13:51:00 71 mm[Hg] [facility] Heart rate 2020-06-24 13:51:00 103 /min [facility] Body temperature 2020-06-24 13:51:00 36.44 [facility] Respiratory rate 2020-06-24 13:51:00 16 /min [facility] Body height 2020-06-24 13:51:00 167.6 cm [facility] Body weight 2020-06-24 13:51:00 109.345 kg [facility] BMI 2020-06-24 13:51:00 38.91 kg/m2 [facility] Systolic blood pressure 2020-06-17 14:54:00 120 mm[Hg] [facility] Diastolic blood pressure 2020-06-17 14:54:00 71 mm[Hg] [facility] Heart rate 2020-06-17 14:54:00 92 /min [facility] Body temperature 2020-06-17 14:54:00 36.61 [facility] Respiratory rate 2020-06-17 14:54:00 16 /min [facility] Body height 2020-06-17 14:54:00 165.1 cm [facility] Body weight 2020-06-17 14:54:00 107.185 kg [facility] BMI 2020-06-17 14:54:00 39.32 kg/m2 [facility] Systolic blood pressure 2020-06-02 14:47:00 121 mm[Hg] [facility] Diastolic blood pressure 2020-06-02 14:47:00 74 mm[Hg] [facility] Heart rate 2020-06-02 14:47:00 95 /min [facility] Body temperature 2020-06-02 14:47:00 36.78 [facility] Respiratory rate 2020-06-02 14:47:00 16 /min [facility] Body height 2020-06-02 14:47:00 165.1 cm [facility] Body weight 2020-06-02 14:47:00 104.781 kg [facility] BMI 2020-06-02 14:47:00 38.44 kg/m2 [facility] Systolic blood pressure 2020-05-19 14:01:00 128 mm[Hg] [facility] Diastolic blood pressure 2020-05-19 14:01:00 73 mm[Hg] [facility] Heart rate 2020-05-19 14:01:00 104 /min [facility] Body temperature 2020-05-19 14:01:00 36.61 [facility] Respiratory rate 2020-05-19 14:01:00 16 /min [facility] Body height 2020-05-19 14:01:00 165.1 cm [facility] Body weight 2020-05-19 14:01:00 105.779 kg [facility] BMI 2020-05-19 14:01:00 38.81 kg/m2 [facility] Systolic blood pressure 2020-05-05 14:13:00 117 mm[Hg] [facility] Diastolic blood pressure 2020-05-05 14:13:00 72 mm[Hg] [facility] Heart rate 2020-05-05 14:13:00 100 /min [facility] Body temperature 2020-05-05 14:13:00 36.61 [facility] Respiratory rate 2020-05-05 14:13:00 16 /min [facility] Body height 2020-05-05 14:13:00 165.1 cm [facility] 2020-05-05 14:13:00 102.83 kg [facility] BMI 2020-05-05 14:13:00 37.72 [facility]m2 [facility] 2020-04-21 13:54:00 102 mm[Hg] [facility] Diastolic blood pressure 2020-04-21 13:54:00 69 mm[Hg] [facility] Heart rate 2020-04-21 13:54:00 90 /min [facility] Body temperature 2020-04-21 13:54:00 36.11 [facility] Respiratory rate 2020-04-21 13:54:00 16 /min [facility] Body height 2020-04-21 13:54:00 165.1 cm [facility] Body weight 2020-04-21 13:54:00 102.088 kg [facility] BMI 2020-04-21 13:54:00 37.45 kg/m2 [facility] Systolic blood pressure 2020-04-07 13:07:00 105 mm[Hg] [facility] Diastolic blood pressure 2020-04-07 13:07:00 65 mm[Hg] [facility] Heart rate 2020-04-07 13:07:00 92 /min [facility] Body temperature 2020-04-07 13:07:00 36.44 [facility] Respiratory rate 2020-04-07 13:07:00 16 /min [facility] Body height 2020-04-07 13:07:00 165.1 cm [facility] 2020-04-07 13:07:00 101.152 kg [facility] BMI 2020-04-07 13:07:00 37.11 kg/m2 [facility] Systolic blood pressure 2020-03-10 13:04:00 99 mm[Hg] [facility] Diastolic blood pressure 2020-03-10 13:04:00 55 mm[Hg] [facility] Heart rate 2020-03-10 13:04:00 81 /min [facility] Body temperature 2020-03-10 13:04:00 36.78 [facility] Respiratory rate 2020-03-10 13:04:00 16 /min [facility] Body height 2020-03-10 13:04:00 165.1 cm [facility] Body weight 2020-03-10 13:04:00 98.476 kg [facility] BMI 2020-03-10 13:04:00 36.13 kg/m2 [facility] Systolic blood pressure 2020-02-11 12:50:00 115 mm[Hg] [facility] Diastolic blood pressure 2020-02-11 12:50:00 69 mm[Hg] [facility] Heart rate 2020-02-11 12:50:00 101 /min [facility] Body temperature 2020-02-11 12:50:00 36.72 [facility] Respiratory rate 2020-02-11 12:50:00 16 /min [facility] Body height 2020-02-11 12:50:00 165.1 cm [facility] Body weight 2020-02-11 12:50:00 95.511 kg [facility] BMI 2020-02-11 12:50:00 35.04 kg/m2 [facility] Systolic blood pressure 2020-01-14 12:56:00 107 mm[Hg] [facility] Diastolic blood pressure 2020-01-14 12:56:00 69 mm[Hg] [facility] Heart rate 2020-01-14 12:56:00 87 /min [facility] Body temperature 2020-01-14 12:56:00 36.78 [facility] Respiratory rate 2020-01-14 12:56:00 16 /min [facility] Body weight 2020-01-14 12:56:00 92.761 kg [facility] BMI 2020-01-14 12:56:00 34.03 kg/m2 [facility] Systolic blood pressure 2019-12-17 16:05:00 114 mm[Hg] [facility] Diastolic blood pressure 2019-12-17 16:05:00 75 mm[Hg] [facility] Heart rate 2019-12-17 16:05:00 88 [facility]min [facility] Body temperature 2019-12-17 16:05:00 37.11 [facility] Respiratory rate 2019-12-17 16:05:00 16 /min [facility] Body height 2019-12-17 16:05:00 165.1 cm [facility] Body weight 2019-12-17 16:05:00 89.472 kg [facility] BMI 2019-12-17 16:05:00 32.82 kg/m2 [facility] Systolic blood pressure 2019-11-20 15:53:00 113 mm[Hg] [facility] Diastolic blood pressure 2019-11-20 15:53:00 71 mm[Hg] [facility] Heart rate 2019-11-20 15:53:00 92 /min [facility] Body temperature 2019-11-20 15:53:00 37 [facility] Respiratory rate 2019-11-20 15:53:00 16 /min [facility] Body height 2019-11-20 15:53:00 165.1 cm [facility] Body weight 2019-11-20 15:53:00 85.021 kg [facility] BMI 2019-11-20 15:53:00 31.19 kg/m2 [facility] Procedures Procedure Date / Time Performed Performing Clinician Source CBC WITH DIFF 2024-03-15 19:14:00 Telma Baltazar [facility] FLU VACC ([id number]), 6 MO-64 YRS, .5ML, IM, TIV (FLUCELVAX) 2024-03-15 18:45:02 Telma Baltazar [facility] CBC WITH DIFF 2024-01-24 09:07:00 Ilan Puga [facility] CBC WITH DIFF 2024-01-24 09:07:00 Ilan Puga [facility] [id number] - [place] DELIVERY ONLY W/ CARE 2024-01-23 20:10:00 Jin [facility] TUBAL LIGATION 2024-01-23 20:10:00 Samuel Abdi [facility] [id number] - [place] DELIVERY ONLY W/ CARE 2024-01-23 20:10:00 Jin [facility] TUBAL LIGATION 2024-01-23 20:10:00 Jin Samuel [facility] CBC WITHOUT DIFF 2024-01-23 13:34:00 Sorathia, [facility] HEPATITIS B SURFACE ANTIGEN 2024-01-23 13:34:00 Sorathia, [facility] HB ABO GROUPING 2024-01-23 13:34:00 Sorathia [facility] RPR (QUANTITATIVE) 2024-01-23 13:34:00 Rashard [facility] RHO (D) IMMUNE GLOBULIN 2024-01-23 13:34:00 Onab Key [facility] HIV 1/2 AG-AB WITH REFLEX 2024-01-23 13:34:00 Sorathia, [facility] CBC WITHOUT DIFF 2024-01-23 13:34:00 Sorathia, [facility] HEPATITIS B SURFACE ANTIGEN 2024-01-23 13:34:00 Sorathia, [facility] HB ABO GROUPING 2024-01-23 13:34:00 Sorathia, [facility] RPR (QUANTITATIVE) 2024-01-23 13:34:00 Gianfranco Wetzel [facility] RHO (D) IMMUNE GLOBULIN 2024-01-23 13:34:00 Onab Key [facility] HIV 1/2 AG-AB WITH REFLEX 2024-01-23 13:34:00 Timo [facility] POCT URINALYSIS 2024-01-18 15:31:00 Telma Baltazar [facility] DME/SUPPLY JUSTIFICATION 2024-01-13 14:26:24 Doc tor Unassigned, [facility] POCT URINALYSIS 2024-01-10 21:49:00 Telma Baltazar [facility] SECOND AND THIRD TRIMESTER ULTRASOUND 2024-01-10 18:30:00 Telma Baltazar [facility] POCT URINALYSIS 2024-01-03 15:36:00 Telma Baltazar [facility] POCT URINALYSIS 2023-12-27 21:36:00 Telma Baltazar [facility] SECOND AND THIRD TRIMESTER ULTRASOUND 2023-12-13 19:53:00 Telma Baltazar [facility] POCT URINALYSIS 2023-12-07 15:35:00 Telma Baltazar [facility] DME/SUPPLY JUSTIFICATION 2023-12-02 20:13:24 Doc tor Unassigned, [facility] POCT URINALYSIS 2023-11-17 19:22:00 Telma Baltazar [facility] SECOND AND THIRD TRIMESTER ULTRASOUND 2023-11-09 21:10:00 Telma Baltazar [facility] POCT URINALYSIS 2023-11-02 16:05:00 Telma Baltazar [facility] URINE CULTURE 2023-11-02 15:34:00 Hal Graff [facility] POCT URINALYSIS 2023-10-05 16:32:00 Telma Baltazar [facility] POCT URINALYSIS 2023-09-21 16:18:00 Telma Baltazar [facility] SECOND AND THIRD TRIMESTER ULTRASOUND 2023-09-20 17:21:59 Telma Baltazar [facility] POCT URINALYSIS 2023-08-31 20:31:00 Telma Baltazar [facility] POCT URINALYSIS 2023-08-17 17:51:00 Telma Baltazar [facility] POCT URINALYSIS 2023-07-27 19:28:00 Telma Baltazar [facility] POCT URINALYSIS 2023-07-13 19:20:00 Telma Baltazar [facility] SCANNED LAB RESULTS 2023-07-13 06:01:00 Doctor Luis navarro, [facility] FIRST TRIMESTER ULTRASOUND 2023-06-22 22:16:00 Telma Baltazar [facility] GC & CHLAMYDIA AMPLIFIED ASSAY 2023-06-22 20:10:00 Telma Baltazar [facility] HIGH RISK HPV-THIN PREP 2023-06-22 20:10:00 Telma Baltazar [facility] TRICHOMONAS AMPLIFIED ASSAY 2023-06-22 20:10:00 Telma Baltazar [facility] PAP SMEAR-LIQUID BASED-CP 2023-06-22 20:10:00 Telma Baltazar [facility] GLUCOSE 1 HOUR POST PRANDIAL 2023-06-22 20:04:00 Telma Baltazar [facility] CBC WITH DIFF 2023-06-22 20:04:00 Telma Baltazar [facility] RUBELLA SCREEN IGG 2023-06-22 20:04:00 Meme Baltazar [facility] VZV ANTIBODY SCREEN 2023-06-22 20:04:00 Michele Baltazar [facility] HEPATITIS B SURFACE ANTIGEN 2023-06-22 20:04:00 Telma Baltazar [facility] HCV ANTIBODY 2023-06-22 20:04:00 [facility] 2023-06-22 20:04:00 Telma Baltazar [facility] HIV 1/2 AG-AB WITH REFLEX 2023-06-22 20:04:00 Telma Baltazar [facility] SYPHILIS IGG/IGM 2023-06-22 20:04:00 Telma Baltazar [facility] URINE CULTURE 2023-06-22 19:31:00 Telma Baltazar [facility] POCT TEST 2023-06-22 18:53:00 Michele Baltazar [facility] POCT URINALYSIS W/O SPECIFIC GRAVITY 2023-06-22 18:53:00 Telma Baltazar [facility] ASSIGNMENT OF BENEFITS 2023-06-22 18:18:19 Docto r Unassigned, [facility] CONSENT/REFUSAL FOR DIAGNOSIS AND TREATMENT 2022-12-21 03:31:02 Doctor Unassigned, [facility] CBC WITH DIFF 2020-07-06 06:37:00 Lisa Bourne [facility] CBC WITH DIFF 2020-07-04 01:17:00 [place] [facility] HEPATITIS B SURFACE ANTIGEN 2020-07-04 01:17:00 [facility] HIV 1/2 AG-AB WITH REFLEX 2020-07-04 01:17:00 Kirstie Kathleen [facility] GALV ONLY - SYPHILIS IGG/IGM 2020-07-04 01:17:00 [facility] HB ABO GROUPING 2020-07-04 01:10:00 [place] [facility] RHO (D) IMMUNE GLOBULIN 2020-07-04 01:10:00 Elver Bourne [facility] COVID-19 (ID NOW RAPID TESTING) 2020-07-03 23:53:00 Mateusz Lee [facility] POCT URINALYSIS 2020-07-01 15:09:00 Mary Carmen Christopher [facility] POCT URINALYSIS 2020-06-24 14:05:00 Mary Carmen Christopher [facility] POCT URINALYSIS 2020-06-17 00:00:00 Mary Carmen Christopher [facility] ASSIGNMENT OF BENEFITS 2020-06-02 14:28:34 Docto r Unassigned, [facility] POCT URINALYSIS 2020-06-02 00:00:00 Mary Carmen Christopher [facility] FLU VACC ([id number]), 6+ MONTHS, IM, QUAD 2020-05-19 14:52:02 Mary Carmen Christopher [facility] POCT URINALYSIS 2020-05-19 14:07:00 Mary Carmen Christopher [facility] POCT URINALYSIS 2020-05-05 00:00:00 Mary Carmen Christopher [facility] TDAP VACCINE, >11 YRS, IM 2020-04-21 14:19:28 Mary Carmen Christopher [facility] POCT URINALYSIS 2020-04-21 13:57:00 Mary Carmen Christopher [facility] POCT URINALYSIS 2020-04-07 00:00:00 Mary Carmen Christopher [facility] POCT URINALYSIS 2020-03-10 00:00:00 Mary Carmen Christopher [facility] POCT URINALYSIS 2020-02-11 12:51:00 Mary Carmen [facility] POCT URINALYSIS 2020-01-14 12:59:00 Mary Carmen [facility] POCT URINALYSIS 2019-12-17 16:07:00 Mary Carmen [facility] POCT URINALYSIS 2019-11-20 15:55:00 Mary Carmen [facility] POCT TEST 2019-11-20 15:55:00 Liliana [facility] REPORT OF 2019-11-20 05:01:00 Doctor Luis navarro, [place] [facility] REPORT OF 2019-11-14 05:01:00 Doctor Luis navarro, [place] [facility] Encounters Start Date/Time End Date/Time Encounter Type Admission Type Attending Clinicians Care Facility Care Department Encounter ID Source 2021-04-11 18:43:23 Outpatient [facility] [id number] [facility] 2024-08-06 14:00:00 2024-08-06 14:00:00 Outpatient R GERARDO RODRIGUEZ [facility] [id number] [facility] 2023-12-02 00:00:00 2024-07-28 07:29:03 Orders Only Doctor Unassigned, [place] Doctor Unassigned, [place] [facility] 1.2.840.114 350.1.13.10 4.2.7.2.686 [id number] [facility] 2024-01-13 00:00:00 2024-07-28 07:12:23 Orders Only Doctor Unassigned, [place] Doctor Unassigned, [place] [facility] 1.2.840.114 350.1.13.10 4.2.7.2.686 [id number] [facility] 2024-05-31 13:30:00 2024-05-31 13:30:00 Outpatient R [facility] [id number] [facility] 2024-03-15 13:15:00 2024-03-15 14:55:30 Outpatient R TELMA BALTAZAR [facility] [id number] [facility] 2024-03-15 13:15:00 2024-03-15 14:55:30 Office Visit Telma Baltazar [facility] ASS[facility] PROTECTION OFFICER [facility] 1.2.840.114 350.1.13.10 4.2.7.2.686 [id number] 107 [id number] [facility] 2024-03-10 00:00:00 2024-03-10 12:26:09 Encounter [facility] 1.2.840.114 350.1.13.10 4.2.7.2.686 [id number] [facility] 2024-02-23 14:30:00 2024-02-23 14:50:37 Outpatient R GERARDO RODRIGUEZ [facility] [id number] [facility] 2024-02-23 14:30:00 2024-02-23 14:50:37 Routine Visit Gerardo Rodriguez [facility] ASS[facility] PROTECTION OFFICER [facility] & CHILD [facility] 1.2.840.114 350.1.13.10 4.2.7.2.686 [id number] [facility] 2024-01-30 14:00:00 2024-01-30 14:15:00 Nurse Visit Visit, Ang-Rmchp Nurse Gerardo Rodriguez Visit, Carlos Nurse [facility] ASSET PROTECTION OFFICER [facility] & CHILD [facility] 1.2.840.114 350.1.13.10 4.2.7.2.686 [id number] 107 [id number] [facility] 2024-01-30 14:00:00 2024-01-30 14:00:00 Outpatient R GERARDO RODRIGUEZ [facility] [id number] [facility] 2023-12-28 00:00:00 2024-01-28 18:19:05 Patient Secure Telma Mcnulty [facility] ASSET PROTECTION OFFICER [facility] & CHILD [facility] 1.2840.114 350.1.13.10 4.2.7.2.686 [id number] [facility] 2024-01-23 07:43:00 2024-01-24 18:44:00 Inpatient P JINCORIY CROI ABDIY [facility] [id number] [facility] 2024-01-23 07:43:00 2024-01-24 18:44:00 Hospital Encounter JinSamuel marr [facility] 1.2.840.114 350.1.13.10 4.2.7.2.686 [id number] [facility] 2024-01-23 08:30:00 2024-01-23 10:24:00 Surgery Cori Abdiy [facility] 1.2.840.114 350.1.13.10 4.2.7.2.686 [id number] [facility] 2024-01-18 10:45:00 2024-01-18 10:51:51 Outpatient R TELMA BALTAZAR [facility] [id number] [facility] 2024-01-18 10:45:00 2024-01-18 10:51:51 Routine Visit Telma Baltazar [facility] ASSET PROTECTION OFFICER [facility] 1.2840.114 350.1.13.10 4.2.7.2.686 [id number] 107 [id number] [facility] 2024-01-11 00:00:00 2024-01-11 06:25:14 Case Management Telma Baltazar [facility] ASS[facility] PROTECTION OFFICER [facility] & CHILD [facility] 1.2840.114 350.1.13.10 4.2.7.2.686 [id number] [facility] 2024-01-10 13:00:00 2024-01-10 13:54:12 Outpatient P TELMA BALTAZAR [facility] [id number] [facility] 2024-01-10 13:00:00 2024-01-10 13:54:12 Hatchery Man Visit 1, [facility] Room Telma Baltazar 1, [facility] Usg Room [facility] 1.840.114 350.1.13.10 4.2.7.2.686 [id number] [facility] 2024-01-10 10:45:00 2024-01-10 11:18:39 Routine Visit Telma Baltazar [facility] ASS[facility] PROTECTION OFFICER [facility]ILD [facility] 1.2840.114 350.1.13.10 4.2.7.2.686 [id number] 107 [id number] [facility] 2024-01-05 00:00:00 2024-01-05 07:27:56 Case Management Telma Baltazar [facility] ASSET PROTECTION OFFICER [facility] 1.2.840.114 350.1.13.10 4.2.7.2.686 [id number] [facility] 2024-01-03 10:15:00 2024-01-03 11:01:53 Outpatient R REIMICHELE CALIXNDA [facility] [id number] [facility] 2024-01-03 10:15:00 2024-01-03 11:01:53 [facility]ILD [facility] 1.2840.114 350.1.13.10 4.2.7.2.686 [id number] 107 [id number] [facility] 2023-12-27 16:15:00 2023-12-27 16:44:15 [id number] 2023-12-27 16:15:00 2023-12-27 16:44:15 [facility] 1.840.114 350.1.13.10 4.2.7.2.686 [id number] [facility] 2023-12-21 14:00:00 2023-12-21 14:00:00 [facility] [id number] [facility] 2023-12-05 00:00:00 2023-12-14 17:07:38 Hal Orellana [facility] 1.840.114 350.1.13.10 4.2.7.2.686 [id number] [facility] 2023-12-14 00:00:00 2023-12-14 07:01:07 Case [facility] PROTECTION OFFIC[facility]ILD [facility] 1.2840.114 350.1.13.10 4.2.7.2.686 [id number] 107 [id number] [facility] 2023-12-13 14:30:00 2023-12-13 15:18:25 Outpatient P DIONNE BOWMAN [facility] [id number] [facility] 2023-12-13 14:30:00 2023-12-13 15:18:25 Hatchery Man Visit Ultrasound, Dionne Romero [facility] ASSET PROTECTION OFFICER [facility] & CHILD [facility] 1..840.114 350.1.13.10 4.2.7.2.686 [id number] [facility] 2023-12-07 10:15:00 2023-12-07 11:02:40 Outpatient R TELMA BALTAZAR [facility] [id number] [facility] 2023-12-07 10:15:00 2023-12-07 11:02:40 Routine Visit Risk, ShirleyRmchp-N p/High Telma Baltazar [facility] ASSET PROTECTION OFFICER [facility] & CHILD [facility] ..840.114 350.1.13.10 4.2.7.2.686 [id number] 107 [id number] [facility] 2023-12-05 00:00:00 2023-12-05 13:45:02 Telephone Hal Graff [facility] ASSET PROTECTION OFFICER [facility] CHILD [facility] 1..840.114 350.1.13.10 4.2.7.2.686 [id number] 107 [id number] [facility] 2023-12-05 00:00:00 2023-12-05 13:44:40 RefHal Banks [facility] ASSET PROTECTION OFFICER [facility]ILD [facility] 1.2.840.114 350.1.13.10 4.2.7.2.686 [id number] [facility] 2023-12-05 00:00:00 2023-12-05 11:34:32 Hal Orellana [facility] ASSET PROTECTION OFFICER [facility] 1.2840.114 350.1.13.10 4.2.7.2.686 [id number] 107 [id number] [facility] 2023-12-03 00:00:00 2023-12-05 10:16:30 Hal Orellana [facility] 1.2840.114 350.1.13.10 4.2.7.2.686 [id number] [id number] [facility] 2023-11-27 00:00:00 2023-12-01 15:15:44 Hal Orellana [facility] 1.2840.114 350.1.13.10 4.2.7.2.686 [id number] [id number] [facility] 2023-12-01 13:30:00 2023-12-01 13:30:00 Outpatient KISHAN MARTINEZ [facility] [id number] [facility] 2023-11-18 00:00:00 2023-11-18 13:33:55 Hal Orellana [facility] 1.2840.114 350.1.13.10 4.2.7.2.686 [id number] [id number] [facility] 2023-11-18 00:00:00 2023-11-18 09:26:27 Hal Orellana [facility] ASSET PROTECTION OFFICER [facility] 1.2840.114 350.1.13.10 4.2.7.2.686 [id number] 107 [id number] [facility] 2023-11-18 00:00:00 2023-11-18 00:00:00 Patient Secure Telma Mcnulty [facility] ASSET PROTECTION OFFICER [facility] 1.2840.114 350.1.13.10 4.2.7.2.686 [id number] 107 [id number] [facility] 2023-11-17 14:00:00 2023-11-17 14:32:51 Outpatient R KISHAN MALDONADO [facility] [id number] [facility] 2023-11-17 14:00:00 2023-11-17 14:32:51 Routine Visit Risk, Ang-Rmchp-N p/High Kishan Maldonado [facility] ASSET PROTECTION OFFICER [facility] 1.2.840.114 350.1.13.10 4.2.7.2.686 [id number] 107 [id number] [facility] 2023-11-16 10:00:00 2023-11-16 10:00:00 Outpatient R [facility] [id number] [facility] 2023-11-14 00:00:00 2023-11-14 14:51:00 Abstract Hal Graff [facility] ASSET PROTECTION OFFICER [facility] CHILD [facility] 1.2.840.114 350.1.13.10 4.2.7.2.686 [id number] [facility] 2023-11-10 00:00:00 2023-11-10 15:23:37 Case Management Hal Graff [facility] 1..840.114 350.1.13.10 4.2.7.2.686 [id number] [id number] [facility] 2023-11-10 00:00:00 2023-11-10 06:38:13 Case Management Telma Baltazar [facility] ASSET PROTECTION OFFICER [facility] CHILD [facility] 1.2.840.114 350.1.13.10 4.2.7.2.686 [id number] 107 [id number] [facility] 2023-11-09 15:15:00 2023-11-09 17:12:40 Outpatient P ROSARIO LAZCANO KARIN [facility] [id number] [facility] 2023-11-09 15:15:00 2023-11-09 17:12:40 Hatchery Man Visit Ultrasound, Rosario Bolanos [facility] ASSET PROTECTION OFFICER [facility] 1.2.840.114 350.1.13.10 4.2.7.2.686 [id number] [facility] 2023-11-02 09:45:00 2023-11-02 10:10:20 Outpatient HAL TONG [facility] [id number] [facility] 2023-11-02 09:45:00 2023-11-02 10:10:20 Routine Visit Risk, Ang-Rmchp-N p/Hal Dangelo [facility] ASSET PROTECTION OFFICER [facility] & CHILD [facility] 1..840.114 350.1.13.10 4.2.7.2.686 [id number] 107 [id number] [facility] 2023-10-26 15:30:00 2023-10-26 15:30:00 Outpatient P [facility] [id number] [facility] 2023-10-19 09:30:00 2023-10-19 10:17:45 Outpatient HAL TONG [facility] [id number] [facility] 2023-10-19 09:30:00 2023-10-19 10:17:45 Routine Visit Risk, Ang-Rmchp-N p/High Hal Graff [facility] ASSET PROTECTION OFFICER [facility] & CHILD [facility] 1..840.114 350.1.13.10 4.2.7.2.686 [id number] 107 [id number] [facility] 2023-10-05 11:00:00 2023-10-05 12:06:03 Outpatient HAL TONG [facility] [id number] [facility] 2023-10-05 11:00:00 2023-10-05 12:06:03 Routine Visit Risk, Ang-Rmchp-N p/High Hal Graff [facility] ASSET PROTECTION OFFICER [facility] 1.2.840.114 350.1.13.10 4.2.7.2.686 [id number] 107 [id number] [facility] 2023-09-21 11:00:00 2023-09-21 11:39:10 Outpatient HAL TONG [facility] [id number] [facility] 2023-09-21 11:00:00 2023-09-21 11:39:10 Routine Visit Risk, Ang-Rmchp-N p/High Hal Graff [facility] ASSET PROTECTION OFFICER [facility] & CHILD [facility] 1.2.840.114 350.1.13.10 4.2.7.2.686 [id number] 107 [id number] [facility] 2023-09-21 00:00:00 2023-09-21 00:00:00 Case Management Telma Baltazar [facility] ASSET PROTECTION OFFICER [facility] 1.2.840.114 350.1.13.10 4.2.7.2.686 [id number] 107 [id number] [facility] 2023-09-20 10:45:00 2023-09-20 12:01:45 Outpatient CLARK ESPANA [facility] [id number] [facility] 2023-09-20 10:45:00 2023-09-20 12:01:45 Hatchery Man Visit Ultrasound, Clark Felton [facility] ASSET PROTECTION OFFICER [facility] & CHILD [facility] 1.2.840.114 350.1.13.10 4.2.7.2.686 [id number] [facility] 2023-08-31 14:45:00 2023-08-31 15:44:20 Outpatient R HAL GRAFF [facility] [id number] [facility] 2023-08-31 14:45:00 2023-08-31 15:44:20 Routine Visit Risk, Ang-Rmchp-N p/High Hal Graff [facility] ASSET PROTECTION OFFICER [facility] & CHILD [facility] 1.2.840.114 350.1.13.10 4.2.7.2.686 [id number] [facility] 2023-08-17 11:00:00 2023-08-17 11:49:01 Outpatient R HAL GRAFF [facility] [id number] [facility] 2023-08-17 11:00:00 2023-08-17 11:49:01 Routine Visit Risk, Zackary-Rmchp-N p/High Hal Graff [facility] ASSET PROTECTION OFFICER [facility] 1.2840.114 350.1.13.10 4.2.7.2.686 [id number] 107 [id number] [facility] 2023-08-16 00:00:00 2023-08-16 00:00:00 Case Management Hal Graff [facility] 1.2.840.114 350.1.13.10 4.2.7.2.686 [id number] [facility] 2023-08-16 00:00:00 2023-08-16 00:00:00 Refill Hal Graff [facility] 1.2.840.114 350.1.13.10 4.2.7.2.686 [id number] [id number] [facility] 2023-08-16 00:00:00 2023-08-16 00:00:00 Patient Secure Msg Telma Baltazar [facility] 1.2.840.114 350.1.13.10 4.2.7.2.686 [id number] 107 [id number] [facility] 2023-08-16 00:00:00 2023-08-16 00:00:00 Patient Secure Msg Doctor Unassigned, [place] [facility] 1.0.114 350.1.13.10 4.2.7.2.686 [id number] [facility] 2023-08-09 00:00:00 2023-08-09 00:00:00 RefHal Banks [facility] ASSET PROTECTION OFFICER [facility] CHILD [facility] 1.840.114 350.1.13.10 4.2.7.2.686 [id number] [facility] 2023-07-27 13:45:00 2023-07-27 13:55:57 Outpatient HAL TONG [facility] [id number] [facility] 2023-07-27 13:45:00 2023-07-27 13:55:57 Routine Visit Risk, Ang-Rmchp-N p/[facility] 1..114 350.1.13.10 4.2.7.2.686 [id number] 107 [id number] [facility] 2023-07-13 13:30:00 2023-07-13 14:23:25 Outpatient HAL TONG [facility] [id number] [facility] 2023-07-13 13:30:00 2023-07-13 14:23:25 Routine Visit Risk, Ang-Rmchp-N p/High [facility] PR[facility] 1.0.114 350.1.13.10 4.2.7.2.686 [id number] 107 [id number] [facility] 2023-07-13 00:00:00 2023-07-13 00:00:00 Orders Only Doctor Unassigned, [place] [facility] 1.840.114 350.1.13.10 4.2.7.2.686 [id number] [facility] 2023-07-06 13:15:00 2023-07-06 13:15:00 Outpatient R HAL GRAFF [facility] [id number] [facility] 2023-06-22 15:15:00 2023-06-22 15:15:04 Hatchery Man Visit Ultrasound, [facility] Telma Baltazar [facility] ASSET PROTECTION OFFICER [facility] CHILD [facility] 1.20.114 350.1.13.10 4.2.7.2.686 [id number] [facility] 2023-06-22 13:00:00 2023-06-22 15:14:58 Outpatient R TELMA BALTAZAR [facility] [id number] [facility] 2023-06-22 13:00:00 2023-06-22 15:14:58 Initial Visit Telma Baltazar [facility] ASSET PROTECTION OFFICER [facility]ILD [facility] 1.0.114 350.1.13.10 4.2.7.2.686 [id number] 107 [id number] [facility] 2023-06-22 00:00:00 2023-06-22 00:00:00 Orders Only Doctor Unassigned, [place] [facility] 1.0.114 350.1.13.10 4.2.7.2.686 [id number] [facility] 2022-12-20 22:40:00 2022-12-21 00:29:00 Emergency X Elver NASH [facility] [id number] [facility] 2022-12-20 22:40:00 2022-12-21 00:29:00 Emergency Elver Nash [facility] 1..114 350.1.13.10 4.2.7.2.686 [id number] [facility] 2022-12-20 00:00:00 2022-12-20 00:00:00 Orders Only Doctor Unassigned, [place] [facility] 1.2840.114 350.1.13.10 4.2.7.2.686 [id number] [facility] 2020-08-05 15:00:00 2020-08-05 15:00:00 Outpatient MARY CARMEN HANCOCK [facility] [id number] [facility] 2020-08-05 00:00:00 2020-08-05 00:00:00 Telephone Mary Carmen [facility] ASSET PROTECTION OFFICER [facility] CHILD [facility] 1.2840.114 350.1.13.10 4.2.7.2.686 [id number] 107 [id number] [facility] 2020-07-30 14:30:00 2020-07-30 14:30:00 Outpatient R MARY CARMEN CHRISTOPHER [facility] [id number] [facility] 2020-07-11 08:43:44 2020-07-11 09:01:39 Nurse Visit Visit, [facility]chp [facility] 1.840.114 350.1.13.10 4.2.7.2.686 [id number] 107 [id number] [facility] 2020-07-11 08:30:00 2020-07-11 08:30:00 Outpatient MARY CARMEN HANCOCK [facility] [id number] [facility] 2020-07-03 17:47:00 2020-07-06 13:27:00 Hospital Encounter Clark Strickland [facility] 1.2840.114 350.1.13.10 4.2.7.2.686 [id number] [facility] 2020-07-06 00:00:00 2020-07-06 00:00:00 Encounter 1.2.840.1 [id number] [id number] 1.2.840.114 350.1.13.10 4.2.7.2.696 [id number] [facility] 2020-07-06 00:00:00 2020-07-06 00:00:00 Telephone Hawk Yousifmilton [facility] 1.2.840.114 350.1.13.10 4.2.7.2.686 [id number] [facility] 2020-07-01 08:45:46 2020-07-01 09:23:52 Routine Visit Mary Carmen Christopher [facility] ASSET PROTECTION OFFICER [facility]ILD [facility] 1.2.840.114 350.1.13.10 4.2.7.2.686 [id number] 107 [id number] [facility] 2020-07-01 08:45:00 2020-07-01 08:45:00 Outpatient R MARY CARMEN CHRISTOPHER [facility] [id number] [facility] 2020-06-24 07:50:12 2020-06-24 08:13:21 Routine Visit Mary Carmen Christopher [facility] ASSET PROTECTION OFFICER [facility] 1.2.840.114 350.1.13.10 4.2.7.2.686 [id number] [facility] 2020-06-24 07:45:00 2020-06-24 07:45:00 Outpatient R MARY CARMEN CHRISTOPHER [facility] [id number] [facility] 2020-06-17 08:19:25 2020-06-17 09:14:22 Routine Visit Mary Carmen Christopher [facility] ASSET PROTECTION OFFICER [facility] 1.2.840.114 350.1.13.10 4.2.7.2.686 [id number] [facility] 2020-06-17 08:15:00 2020-06-17 08:15:00 Outpatient R PIYUSH CHRISTOPHERNDA [facility] [id number] [facility] 2020-06-02 08:29:02 2020-06-02 09:03:42 Routine Visit Mary Carmen Christopher [facility] [employer] [facility] 1.2.840.114 350.1.13.10 4.2.7.2.686 [id number] [facility] 2020-06-02 08:30:00 2020-06-02 08:30:00 Outpatient MARY CARMEN [facility] [id number] [facility] 2020-06-02 00:00:00 2020-06-02 00:00:00 Orders Only Doctor Unassigned, [place] [facility] 1..840.114 350.1.13.10 4.2.7.2.686 [id number] [facility] 2020-05-19 07:48:29 2020-05-19 08:28:20 Routine Visit Mary Carmen Christopher [facility] [employer] [facility] 1.840.114 350.1.13.10 4.2.7.2.686 [id number] [facility] 2020-05-19 07:45:00 2020-05-19 07:45:00 Outpatient MARY CARMEN [facility] [id number] [facility] 2020-05-05 07:49:38 2020-05-05 08:40:18 Routine Visit Mary Carmen Christopher [facility] [employer] [facility] 1.84.114 350.1.13.10 4.2.7.2.686 [id number] [facility] 2020-05-05 07:45:00 2020-05-05 07:45:00 Outpatient R MARY CARMEN [facility] [id number] [facility] 2020-04-21 07:45:52 2020-04-21 08:08:49 Routine Visit Mary Carmen Christopher [facility] [employer] OFF[employer] 1..840.114 350.1.13.10 4.2.7.2.686 [id number] [facility] 2020-04-21 07:45:00 2020-04-21 07:45:00 Outpatient R MARY CARMEN [facility] [id number] [facility] 2020-04-07 07:48:37 2020-04-07 14:10:46 Routine Visit Mary Carmen Christopher [facility] [employer] [facility] 1..840.114 350.1.13.10 4.2.7.2.686 [id number] [facility] 2020-04-07 07:45:00 2020-04-07 07:45:00 Outpatient R MARY CARMEN [facility] [id number] [facility] 2020-03-10 07:45:54 2020-03-10 08:20:05 Routine Visit Mary Carmen Christopher [facility] [employer] [facility] 1..840.114 350.1.13.10 4.2.7.2.686 [id number] [facility] 2020-03-10 07:45:00 2020-03-10 07:45:00 Outpatient R MARY CARMEN [facility] [id number] [facility] 2020-02-19 09:25:30 2020-02-19 10:25:30 [employer]chery [employer] Visit Ultrasound, Dionne Romero [facility] [employer] [facility] 1..840.114 350.1.13.10 4.2.7.2.686 [id number] [facility] 2020-02-19 09:30:00 2020-02-19 09:30:00 Outpatient P [facility] [id number] [facility] 2020-02-11 07:45:50 2020-02-11 08:36:50 Routine Visit Christopher, Mary Carmen Tolentino [facility] [employer] [facility] 1.2.840.114 350.1.13.10 4.2.7.2.686 [id number] [facility] 2020-02-11 07:45:00 2020-02-11 07:45:00 Outpatient R CHRISTOPHER, ROSDANIEL [facility] [id number] [facility] 2020-01-14 07:45:58 2020-01-14 08:15:55 Routine Visit Christopher, Rosdaniel [facility] ASSET PROTECTION OFFICER [facility] & CHILD [facility] 1..840.114 350.1.13.10 4.2.7.2.686 [id number] [facility] 2020-01-14 07:45:00 2020-01-14 07:45:00 Outpatient R CHRISTOPHER AIDANIEL [facility] [id number] [facility] 2019-12-27 00:00:00 2019-12-27 00:00:00 Telephone Mary Carmen Christopher [facility] ASSET PROTECTION OFFICER [facility] & CHILD [facility] 1..840.114 350.1.13.10 4.2.7.2.686 [id number] 107 [id number] [facility] 2019-12-19 08:00:00 2019-12-19 08:00:00 Outpatient P [facility] [id number] [facility] 2019-12-17 10:44:45 2019-12-17 10:59:45 Routine Visit Ai Christopherdaniel [facility] ASSET PROTECTION OFFICER [facility] & CHILD [facility] 1..840.114 350.1.13.10 4.2.7.2.686 [id number] [facility] 2019-12-17 10:45:00 2019-12-17 10:45:00 Outpatient R MARY CARMEN CHRISTOPHER [facility] [id number] [facility] 2019-12-06 08:30:01 2019-12-06 09:00:01 Hatchery Man Visit Ultrasound, Gerardo Muro Hassan M [facility] ASSET PROTECTION OFFICER [facility] & CHILD [facility] 1.840.114 350.1.13.10 4.2.7.2.686 [id number] [facility] 2019-12-06 08:30:00 2019-12-06 08:30:00 Outpatient P [facility] [id number] [facility] 2019-12-06 08:04:06 2019-12-06 08:29:05 Hatchery Man Visit Lab, Gerardo Bates [facility] ASSET PROTECTION OFFICER [facility] 1.840.114 350.1.13.10 4.2.7.2.686 [id number] [facility] 2019-12-03 09:30:00 2019-12-03 09:30:00 Outpatient R ERENDIRA ROLLE [facility] [id number] [facility] 2019-12-03 08:16:19 2019-12-03 08:46:19 Telemedici ne Visit Faculty, Erendira Mishra [facility] ASSET PROTECTION OFFICER [facility] & CHILD [facility] 1.840.114 350.1.13.10 4.2.7.2.686 [id number] [facility] 2019-11-28 00:00:00 2019-11-28 00:00:00 Telephone Mary Carmen Christopher [facility] ASSET PROTECTION OFFICER [facility] CHILD [facility] 1.840.114 350.1.13.10 4.2.7.2.686 [id number] [facility] 2019-11-22 00:00:00 2019-11-22 00:00:00 Telephone Gerardo Rodriguez [facility] ASSET PROTECTION OFFICER [facility] CHILD [facility] 1.2.840.114 350.1.13.10 4.2.7.2.686 [id number] [facility] 2019-11-21 09:00:00 2019-11-21 09:00:00 Outpatient R [facility] [id number] [facility] 2019-11-20 10:37:00 2019-11-20 12:01:11 Initial Visit Mary Carmen Christopher [facility] ASSET PROTECTION OFFICER [facility] & CHILD [facility] 1.2840.114 350.1.13.10 4.2.7.2.686 [id number] [facility] 2019-11-20 09:45:00 2019-11-20 09:45:00 Outpatient R AI [facility] [id number] [facility] 2019-11-20 00:00:00 2019-11-20 00:00:00 Orders Only Doctor Unassigned, [place] [facility] 1.2840.114 350.1.13.10 4.2.7.2.686 [id number] [facility] 2019-11-14 00:00:00 2019-11-14 00:00:00 Orders Only Doctor Unassigned, [place] [facility] 1.2840.114 350.1.13.10 4.2.7.2.686 [id number] [facility] 2019-11-14 00:00:00 2019-11-14 00:00:00 Telephone Katrin Barajas [facility] ASSET PROTECTION OFFICER [facility] & CHILD [facility] 1.2.840.114 350.1.13.10 4.2.7.2.686 [id number] [facility] 2019-05-27 19:44:23 2019-05-27 21:38:00 Emergency X SAGE SWEENEY III [facility] ERT [id number] [facility] Results Test Description Test Time Test Comments Results Result Co mments Source [facility] 17:53:02* Test Item Value Reference Range Interpretation Comme nts RPR (Quantitative) (test cod e = 99389-6) Nonreactive Nonreactive Lab Interpretation (test cod e = 58331-4) Normal [facility]-24 17:53:02* Test Item Value Reference Range Interpretation Comme nts RPR (Quantitative) (test cod e = 37694-3) Nonreactive Nonreactive Lab Interpretation (test cod e = 11877-4) Normal [facility] with [id number] 10:17:21* Test Item Value Reference Range Interpretation Comme nts WBC (test code = 6690-2) 12.70 4.30-11.10 H RBC (test code = 789-8) 3.34 3.93-5.25 L HGB (test code = 718-7) 9.3 g/dL 11.6-15.0 L HCT (test code = 4544-3) 28.0 % 35.7-45.2 L MCV (test code = 787-2) 83.8 fL 80.6-95.5 MCH (test code = 785-6) 27.8 pg 25.9-32.8 MCHC (test code = 786-4) 33.2 g/dL 31.6-35.1 RDW-SD (test code = 21588-9) 46.1 fL 39.0-49.9 RDW-CV (test code = 788-0) 15.6 % 12.0-15.5 H PLT (test code = 777-3) 162 166-358 L MPV (test code = 64326-9) 12.5 fL 9.5-12.9 NRBC/100 WBC (test code = 7942950515) 0.0 0.0-10.0 NRBC x10^3 (test code = 9899504828) See_Comment [Automated messa ge] The system which generated this result transmitted reference range: 10*3/?L. The reference range was not used to interpret this result as normal/abnormal. GRAN MAT (NEUT) % (test code = 770-8) 66.9 % IMM GRAN % (test code = 5321951679) 0.90 % LYMPH % (test code = 736-9) 26.7 % MONO % (test code = 5905-5) 5.1 % EOS % (test code = 713-8) 0.2 % BASO % (test code = 706-2) 0.2 % GRAN MAT x10^3(ANC) (test code = 7135690045) 8.48 10*3/uL 1.88-7.09 H IMM GRAN x10^3 (test code = 2820211910) 0.12 10*3/uL 0.00-0.06 H LYMPH x10^3 (test code = 731-0) 3.39 10*3/uL 1.32-3.29 H MONO x10^3 (test code = 742-7) 0.65 10*3/uL 0.33-0.92 EOS x10^3 (test code = 711-2) 0.03 10*3/uL 0.03-0.39 BASO x10^3 (test code = 704-7) 0.03 10*3/uL 0.01-0.07 Lab Interpretation (test code = 95792-3) [facility]normal [facility] with [id number] 10:17:21* Test Item Value Reference Range Interpretation Comme nts WBC (test code = 6690-2) 12.70 4.30-11.10 H RBC (test code = 789-8) 3.34 3.93-5.25 L HGB (test code = 718-7) 9.3 g/dL 11.6-15.0 L HCT (test code = 4544-3) 28.0 % 35.7-45.2 L MCV (test code = 787-2) 83.8 fL 80.6-95.5 MCH (test code = 785-6) 27.8 pg 25.9-32.8 MCHC (test code = 786-4) 33.2 g/dL 31.6-35.1 RDW-SD (test code = 29594-1) 46.1 fL 39.0-49.9 RDW-CV (test code = 788-0) 15.6 % 12.0-15.5 H PLT (test code = 777-3) 162 166-358 L MPV (test code = 70630-1) 12.5 fL 9.5-12.9 NRBC/100 WBC (test code = 2925576496) 0.0 0.0-10.0 NRBC x10^3 (test code = 3338562980) See_Comment [Automated messa ge] The system which generated this result transmitted reference range: 10*3/?L. The reference range was not used to interpret this result as normal/abnormal. GRAN MAT (NEUT) % (test code = 770-8) 66.9 % IMM GRAN % (test code = 6869032561) 0.90 % LYMPH % (test code = 736-9) 26.7 % MONO % (test code = 5905-5) 5.1 % EOS % (test code = 713-8) 0.2 % BASO % (test code = 706-2) 0.2 % GRAN MAT x10^3(ANC) (test code = 7329694715) 8.48 10*3/uL 1.88-7.09 H IMM GRAN x10^3 (test code = 4150246972) 0.12 10*3/uL 0.00-0.06 H LYMPH x10^3 (test code = 731-0) 3.39 10*3/uL 1.32-3.29 H MONO x10^3 (test code = 742-7) 0.65 10*3/uL 0.33-0.92 EOS x10^3 (test code = 711-2) 0.03 10*3/uL 0.03-0.39 BASO x10^3 (test code = 704-7) 0.03 10*3/uL 0.01-0.07 Lab Interpretation (test code = 10457-4) Abnormal [facility] IMMUNE [id number] 22:26:13* Test Item Value Reference Range Interpretation Comme nts RHIG CANDIDATE? (test code = 5188) No- see comment Patient is not a candidate for RhIg- Patient is Rh Positive.Performed at [facility] Laboratory Services - [facility] Blood [address] [place] [id number] Free: [phone] No. [id number] [facility]D) IMMUNE [id number] 22:26:13* Test Item Value Reference Range Interpretation Comme nts RHIG CANDIDATE? (test code = 5188) No- see comment Patient is not a candidate for RhIg- Patient is Rh Positive.Performed at [facility] Laboratory Services - [facility] Blood [address] [address]Zpdg Free: [phone] No. [id number] [facility] CenterHIV 1/2 AG-AB WITH [id number] 15:18:44* Test Item Value Reference Range Interpretation Comme nts HIV Semi-quantitative (test code = 83010-0) 0.11 Negative MARY CARMEN (test code = MARY CARMEN) Non-reactive for HIV-1 antigen and HIV-1/HIV-2 antibodies. ?No laboratory evidence of HIV infection. ?Repeat in 2-4 weeks if acute HIV infection is suspected. [facility] [id number] 15:18:44* Test Item Value Reference Range Interpretation Comme nts HIV Semi-quantitative (test code = 20405-9) 0.11 Negative MARY CARMEN (test code = MARY CARMEN) Non-reactive for HIV-1 antigen and HIV-1/HIV-2 antibodies. ?No laboratory evidence of HIV infection. ?Repeat in 2-4 weeks if acute HIV infection is suspected. [facility] Surface [id number] 15:09:01 * Test Item Value Reference Range Interpretation Comme nts HBsAg Semi-Quantitative (lee t code = 5195-3) 0.09 Negative [facility] Surface [id number] 15:09:01 * Test Item Value Reference Range Interpretation Comme nts HBsAg Semi-Quantitative (lee t code = 5195-3) 0.09 Negative [facility] without [id number] 13:59:12* Test Item Value Reference Range Interpretation Comme nts WBC (test code = 6690-2) 10.03 4.30-11.10 RBC (test code = 789-8) 3.70 3.93-5.25 L HGB (test code = 718-7) 10.2 g/dL 11.6-15.0 L HCT (test code = 4544-3) 30.8 % 35.7-45.2 L MCH (test code = 785-6) 27.6 pg 25.9-32.8 MCV (test code = 787-2) 83.2 fL 80.6-95.5 MCHC (test code = 786-4) 33.1 g/dL 31.6-35.1 PLT (test code = 777-3) 184 166-358 MPV (test code = 31262-9) 11.9 fL 9.5-12.9 RDW-CV (test code = 788-0) 15.4 % 12.0-15.5 RDW-SD (test code = 01927-0) 45.2 fL 39.0-49.9 NRBC x10^3 (test code = 5846252190) See_Comment [Automated Comuniteea ge] The system which generated this result transmitted reference range: 10*3/?L. The reference range was not used to interpret this result as normal/abnormal. NRBC/100 WBC (test code = 9168368911) 0.0 0.0-10.0 IPF % (test code = 0321295615) Lab Interpretation (test code = 34472-3) Abnormal [facility] without [id number] 13:59:12* Test Item Value Reference Range Interpretation Comme nts WBC (test code = 6690-2) 10.03 4.30-11.10 RBC (test code = 789-8) 3.70 3.93-5.25 L HGB (test code = 718-7) 10.2 g/dL 11.6-15.0 L HCT (test code = 4544-3) 30.8 % 35.7-45.2 L MCH (test code = 785-6) 27.6 pg 25.9-32.8 MCV (test code = 787-2) 83.2 fL 80.6-95.5 MCHC (test code = 786-4) 33.1 g/dL 31.6-35.1 PLT (test code = 777-3) 184 166-358 MPV (test code = 24205-6) 11.9 fL 9.5-12.9 RDW-CV (test code = 788-0) 15.4 % 12.0-15.5 RDW-SD (test code = 11390-1) 45.2 fL 39.0-49.9 NRBC x10^3 (test code = 5421947326) See_Comment [Automated messa ge] The system which generated this result transmitted reference range: 10*3/?L. The reference range was not used to interpret this result as normal/abnormal. NRBC/100 WBC (test code = 7460068479) 0.0 0.0-10.0 IPF % (test code = 3821722009) Lab Interpretation (test code = 64565-8) [facility]normal [facility] - STAT [id number] 13:43:00* Test Item Value Reference Range Interpretation Comme nts ABO & RH (test code = 20) B POSITIVE IAT (test code = 1185) Negative [facility] STAT Ccsfqlo1796-38-05 13:43:00* Test Item Value Reference Range Interpretation Comme nts ABO & RH (test code = 20) B POSITIVE IAT (test code = 1185) Negative [facility] CenterPO[facility] W SPECIFIC [id number] 15:31:00* Test Item Value Reference Range Interpretation Comme nts POCT U SP GRAV (test code = 3255) . 1.005-1.025 POCT PH U (test code = 3254) . 5-8 POCT U LEUK EST (test code = 3263) . Negative - N egative POCT U NIT (test code = 3262) . Negative - Negati ve POCT U PROT (test code = 3259) . Negative - Negat meggan POCT U GLU (test code = 3256) . Negative - Negati ve POCT U KETONE (test code = 3258) . Negative - Neg ative POCT U UROBILI (test code = 3260) . 0.2-1 POCT U BILI (test code = 3261) . Negative - Negat meggan POCT U BLD (test code = 3257) . Negative - Negati ve POCT U COLOR (test code = 3266) . POCT U APPEAR (test code = 3267) ... [facility] CenterDME/SUPPLY [id number] 14:26:24 Ordered by an unspecified provider.[facility] CenterPOWV URINALYSIS W SPECIFIC [id number] 21:49:00* Test Item Value Reference Range Interpretation Comme nts POCT U SP GRAV (test code = 3255) . 1.005-1.025 POCT PH U (test code = 3254) . 5-8 POCT U LEUK EST (test code = 3263) . Negative - N egative POCT U NIT (test code = 3262) . Negative - Negati ve POCT U PROT (test code = 3259) . Negative - Negat meggan POCT U GLU (test code = 3256) . Negative - Negati ve POCT U KETONE (test code = 3258) . Negative - Neg ative POCT U UROBILI (test code = 3260) . 0.2-1 POCT U BILI (test code = 3261) . Negative - Negat meggan POCT U BLD (test code = 3257) . Negative - Negati ve POCT U COLOR (test code = 3266) . POCT U APPEAR (test code = 3267) .... [facility] URINALYSIS W SPECIFIC [id number] 15:36:00* Test Item Value Reference Range Interpretation Comme nts POCT U SP GRAV (test code = 3255) . 1.005-1.025 A POCT PH U (test code = 3254) 7 mg/dl 5-8 POCT U LEUK EST (test code = 3263) 2+ Negative - Negative POCT U NIT (test code = 3262) Neg Negative - Negati ve POCT U PROT (test code = 3259) Trace Negative - Negat meggan POCT U GLU (test code = 3256) Nml Negative - Negati ve POCT U KETONE (test code = 3258) Neg Negative - Neg ative POCT U UROBILI (test code = 3260) . 0.2-1 POCT U BILI (test code = 3261) . Negative - Negat meggan POCT U BLD (test code = 3257) Trace Negative - Negati ve POCT U COLOR (test code = 3266) POCT U APPEAR (test code = 3267) Lab Interpretation (test cod e = 30814-9) Abnormal [facility] W SPECIFIC [id number] 21:36:00* Test Item Value Reference Range Interpretation Comme nts POCT U SP GRAV (test code = 3255) . 1.005-1.025 POCT PH U (test code = 3254) 6 mg/dl 5-8 POCT U LEUK EST (test code = 3263) Trace Negative - Negative POCT U NIT (test code = 3262) Neg Negative - Negati ve POCT U PROT (test code = 3259) Trace Negative - Negat meggan POCT U GLU (test code = 3256) Nml Negative - Negati ve POCT U KETONE (test code = 3258) 2+ Negative - Neg ative POCT U UROBILI (test code = 3260) . 0.2-1 POCT U BILI (test code = 3261) . Negative - Negat meggan POCT U BLD (test code = 3257) Trace Negative - Negati ve POCT U COLOR (test code = 3266) . POCT U APPEAR (test code = 3267) . [facility] URINALYSIS W SPECIFIC [id number] 15:36:00* Test Item Value Reference Range Interpretation Comme nts POCT U SP GRAV (test code = 3255) . 1.005-1.025 POCT PH U (test code = 3254) 5 mg/dl 5-8 POCT U LEUK EST (test code = 3263) trace Negative - Negative POCT U NIT (test code = 3262) neg Negative - Negati ve POCT U PROT (test code = 3259) trace Negative - Negat meggan POCT U GLU (test code = 3256) neg Negative - Negati ve POCT U KETONE (test code = 3258) neg Negative - Neg ative POCT U UROBILI (test code = 3260) . 0.2-1 POCT U BILI (test code = 3261) . Negative - Negat meggan POCT U BLD (test code = 3257) neg Negative - Negati ve POCT U COLOR (test code = 3266) . POCT U APPEAR (test code = 3267) . [facility] [id number] 20:13:24 Ordered by an unspecified provider.[facility] URINALYSIS W SPECIFIC [id number] 19:22:00* Test Item Value Reference Range Interpretation Comme nts POCT U SP GRAV (test code = 3255) . 1.005-1.025 POCT PH U (test code = 3254) 6 mg/dl 5-8 POCT U LEUK EST (test code = 3263) 2+ Negative - Negative POCT U NIT (test code = 3262) Neg Negative - Negati ve POCT U PROT (test code = 3259) Trace Negative - Negat meggan POCT U GLU (test code = 3256) Nml Negative - Negati ve POCT U KETONE (test code = 3258) Neg Negative - Neg ative POCT U UROBILI (test code = 3260) . 0.2-1 POCT U BILI (test code = 3261) . Negative - Negat meggan POCT U BLD (test code = 3257) Trace Negative - Negati ve POCT U COLOR (test code = 3266) . POCT U APPEAR (test code = 3267) [facility] URINALYSIS W SPECIFIC [id number] 16:05:00* Test Item Value Reference Range Interpretation Comme nts POCT U SP GRAV (test code = 3255) . 1.005-1.025 POCT PH U (test code = 3254) 5 mg/dl 5-8 POCT U LEUK EST (test code = 3263) 2+ Negative - Negative POCT U NIT (test code = 3262) Neg Negative - Negati ve POCT U PROT (test code = 3259) 1+ Negative - Negat meggan POCT U GLU (test code = 3256) Nml Negative - Negati ve POCT U KETONE (test code = 3258) None Negative - Neg ative POCT U UROBILI (test code = 3260) . 0.2-1 POCT U BILI (test code = 3261) . Negative - Negat meggan POCT U BLD (test code = 3257) Trace Negative - Negati ve POCT U COLOR (test code = 3266) POCT U APPEAR (test code = 3267) [facility] URINALYSIS W SPECIFIC [id number] 16:05:00* Test Item Value Reference Range Interpretation Comme nts POCT U SP GRAV (test code = 3255) . 1.005-1.025 POCT PH U (test code = 3254) 5 mg/dl 5-8 POCT U LEUK EST (test code = 3263) 2+ Negative - Negative POCT U NIT (test code = 3262) Neg Negative - Negati ve POCT U PROT (test code = 3259) 1+ Negative - Negat meggan POCT U GLU (test code = 3256) Nml Negative - Negati ve POCT U KETONE (test code = 3258) None Negative - Neg ative POCT U UROBILI (test code = 3260) . 0.2-1 POCT U BILI (test code = 3261) . Negative - Negat meggan POCT U BLD (test code = 3257) Trace Negative - Negati ve POCT U COLOR (test code = 3266) POCT U APPEAR (test code = 3267) [facility] URINALYSIS W SPECIFIC [id number] 16:33:00* Test Item Value Reference Range Interpretation Comme nts POCT U SP GRAV (test code = 3255) . 1.005-1.025 POCT PH U (test code = 3254) 6 mg/dl 5-8 POCT U LEUK EST (test code = 3263) neg Negative - Negative POCT U NIT (test code = 3262) neg Negative - Negati ve POCT U PROT (test code = 3259) trace Negative - Negat meggan POCT U GLU (test code = 3256) neg Negative - Negati ve POCT U KETONE (test code = 3258) neg Negative - Neg ative POCT U UROBILI (test code = 3260) . 0.2-1 POCT U BILI (test code = 3261) . Negative - Negat meggan POCT U BLD (test code = 3257) neg Negative - Negati ve POCT U COLOR (test code = 3266) POCT U APPEAR (test code = 3267) [facility] URINALYSIS W SPECIFIC [id number] 16:18:00* Test Item Value Reference Range Interpretation Comme nts POCT U SP GRAV (test code = 3255) . 1.005-1.025 POCT PH U (test code = 3254) 5 mg/dl 5-8 POCT U LEUK EST (test code = 3263) 1+ Negative - Negative POCT U NIT (test code = 3262) Neg Negative - Negati ve POCT U PROT (test code = 3259) Trace Negative - Negat meggan POCT U GLU (test code = 3256) Nml Negative - Negati ve POCT U KETONE (test code = 3258) None Negative - Neg ative POCT U UROBILI (test code = 3260) . 0.2-1 POCT U BILI (test code = 3261) .. Negative - Negat meggan POCT U BLD (test code = 3257) Trace Negative - Negati ve POCT U COLOR (test code = 3266) POCT U APPEAR (test code = 3267) [facility] URINALYSIS W SPECIFIC [id number] 20:32:00* Test Item Value Reference Range Interpretation Comme nts POCT U SP GRAV (test code = 3255) . 1.005-1.025 POCT PH U (test code = 3254) 8 mg/dl 5-8 POCT U LEUK EST (test code = 3263) 1+ Negative - Negative POCT U NIT (test code = 3262) neg Negative - Negati ve POCT U PROT (test code = 3259) trace Negative - Negat meggan POCT U GLU (test code = 3256) neg Negative - Negati ve POCT U KETONE (test code = 3258) neg Negative - Neg ative POCT U UROBILI (test code = 3260) . 0.2-1 POCT U BILI (test code = 3261) . Negative - Negat meggan POCT U BLD (test code = 3257) neg Negative - Negati ve POCT U COLOR (test code = 3266) . POCT U APPEAR (test code = 3267) . [facility] URINALYSIS W SPECIFIC [id number] 17:51:00* Test Item Value Reference Range Interpretation Comme nts POCT U SP GRAV (test code = 3255) . 1.005-1.025 POCT PH U (test code = 3254) 5 mg/dl 5-8 POCT U LEUK EST (test code = 3263) neg Negative - Negative POCT U NIT (test code = 3262) neg Negative - Negati ve POCT U PROT (test code = 3259) trace Negative - Negat meggan POCT U GLU (test code = 3256) neg Negative - Negati ve POCT U KETONE (test code = 3258) neg Negative - Neg ative POCT U UROBILI (test code = 3260) . 0.2-1 POCT U BILI (test code = 3261) . Negative - Negat meggan POCT U BLD (test code = 3257) neg Negative - Negati ve POCT U COLOR (test code = 3266) POCT U APPEAR (test code = 3267) [facility] URINALYSIS W SPECIFIC [id number] 19:28:00* Test Item Value Reference Range Interpretation Comme nts POCT U SP GRAV (test code = 3255) . 1.005-1.025 POCT PH U (test code = 3254) 6 mg/dl 5-8 POCT U LEUK EST (test code = 3263) Trace Negative - Negative POCT U NIT (test code = 3262) Neg Negative - Negati ve POCT U PROT (test code = 3259) Trace Negative - Negat meggan POCT U GLU (test code = 3256) Nml Negative - Negati ve POCT U KETONE (test code = 3258) None Negative - Neg ative POCT U UROBILI (test code = 3260) . 0.2-1 POCT U BILI (test code = 3261) . Negative - Negat meggan POCT U BLD (test code = 3257) Trace Negative - Negati ve POCT U COLOR (test code = 3266) . POCT U APPEAR (test code = 3267) [facility] URINALYSIS W SPECIFIC [id number] 19:20:00* Test Item Value Reference Range Interpretation Comme nts POCT U SP GRAV (test code = 3255) . 1.005-1.025 POCT PH U (test code = 3254) 6 mg/dl 5-8 POCT U LEUK EST (test code = 3263) Trace Negative - Negative POCT U NIT (test code = 3262) Neg Negative - Negati ve POCT U PROT (test code = 3259) Trace Negative - Negat meggan POCT U GLU (test code = 3256) Nml Negative - Negati ve POCT U KETONE (test code = 3258) None Negative - Neg ative POCT U UROBILI (test code = 3260) . 0.2-1 POCT U BILI (test code = 3261) . Negative - Negat meggan POCT U BLD (test code = 3257) Trace Negative - Negati ve POCT U COLOR (test code = 3266) . POCT U APPEAR (test code = 3267) [facility] URINALYSIS W SPECIFIC [id number] 19:20:00* Test Item Value Reference Range Interpretation Comme nts POCT U SP GRAV (test code = 3255) . 1.005-1.025 POCT PH U (test code = 3254) 6 mg/dl 5-8 POCT U LEUK EST (test code = 3263) Trace Negative - Negative POCT U NIT (test code = 3262) Neg Negative - Negati ve POCT U PROT (test code = 3259) Trace Negative - Negat emggan POCT U GLU (test code = 3256) Nml Negative - Negati ve POCT U KETONE (test code = 3258) None Negative - Neg ative POCT U UROBILI (test code = 3260) . 0.2-1 POCT U BILI (test code = 3261) . Negative - Negat meggan POCT U BLD (test code = 3257) Trace Negative - Negati ve POCT U COLOR (test code = 3266) . POCT U APPEAR (test code = 3267) [facility] Urinalysis w/o Specific [id number] 18:53:00* Test Item Value Reference Range Interpretation Comme nts POCT PH U (test code = 3254) 7 mg/dl 5-8 POCT U LEUK EST (test code = 3263) neg Negative - Negative POCT U NIT (test code = 3262) neg Negative - Negati ve POCT U PROT (test code = 3259) trace Negative - Negat meggan POCT U GLU (test code = 3256) neg Negative - Negati ve POCT U KETONE (test code = 3258) small Negative - Neg ative POCT U BLD (test code = 3257) neg Negative - [facility] [id number] 18:53:00* Test Item Value Reference Range Interpretation Comme nts POCT PREG (test code = 1605) Positive On board controls acceptable with C Line (test code = 3574) Yes POCT PREG LOT # (test code = 3575) POCT PREG TEST DATE ( test code = 3576) [facility] [id number] 06:56:00* Test Item Value Reference Range Interpretation Comme nts WBC (test code = 6690-2) See_Comment H [Automated message] The system which generated this result transmitted reference range: 4.30 - 11.10 10*3/?L. The reference range was not used to interpret this result as normal/abnormal. RBC (test code = 789-8) See_Comment L [Automated message] The system which generated this result transmitted reference range: 3.93 - 5.25 10*6/?L. The reference range was not used to interpret this result as normal/abnormal. HGB (test code = 718-7) 9.1 g/dL 11.6-15 L HCT (test code = 4544-3) 26.5 % 35.7-45.2 L MCV (test code = 787-2) 88.9 fL 80.6-95.5 MCH (test code = 785-6) 30.5 pg 25.9-32.8 MCHC (test code = 786-4) 34.3 g/dL 31.6-35.1 RDW-SD (test code = 05374-1) 43.4 fL 39-49.9 RDW-CV (test code = 788-0) 13.4 % 12-15.5 PLT (test code = 777-3) See_Comment [Automated message] The system which generated this result transmitted reference range: 166 - 358 10*3/?L. The reference range was not used to interpret this result as normal/abnormal. MPV (test code = 96311-0) 11.7 fL 9.5-12.9 NRBC/100 WBC (test code = 8955800987) See_Comment [Automated message] The system which generated this result transmitted reference range: 0.0 - 10.0 /100 WBCs. The reference range was not used to interpret this result as normal/abnormal. NRBC x10^3 (test code = 8375584809) <0.01 See_Comment [Automated message] The system which generated this result transmitted reference range: 10*3/?L. The reference range was not used to interpret this result as normal/abnormal. GRAN MAT (NEUT) % (test code = 770-8) 71.5 % IMM GRAN % (test code = 8420159494) 0.90 % LYMPH % (test code = 736-9) 20.0 % MONO % (test code = 5905-5) 7.0 % EOS % (test code = 713-8) 0.4 % BASO % (test code = 706-2) 0.2 % GRAN MAT x10^3(ANC) (test code = 8618857964) 11.46 10*3/uL 1.88-7.09 H IMM GRAN x10^3 (test code = 9355303468) 0.15 10*3/uL 0-0.06 H LYMPH x10^3 (test code = 731-0) 3.21 10*3/uL 1.32-3.29 MONO x10^3 (test code = 742-7) 1.12 10*3/uL 0.33-0.92 H EOS x10^3 (test code = 711-2) 0.06 10*3/uL 0.03-0.39 BASO x10^3 (test code = 704-7) 0.03 10*3/uL 0.01-0.07 Lab Interpretation (test code = 86863-4) [facility] IMMUNE [id number] 15:28:26* Test Item Value Reference Range Interpretation Comme nts RHIG CANDIDATE? (test code = 5055) No- see comment Patient is not a candidate for RhIg- Patient is Rh Positive.Performed at [facility] Laboratory Services - [facility] Blood [address] [id number] Free: [phone] No. [id number] [facility]HIV [facility]/2 AG-AB WITH [id number] 18:09:00* Test Item Value Reference Range Interpretation Comme nts HIV Semi-quantitative (test code = 06297-8) Negative Negative MARY CARMEN (test code = MARY CARMEN) Non-reactive for HIV-1 antigen and HIV-1/HIV-2 antibodies. ?No laboratory evidence of HIV infection. ?Repeat in 2-4 weeks if acute HIV infection is suspected. [facility] - SYPHILIS [id number] 15:22:00* Test Item Value Reference Range Interpretation Comme nts Syphilis IgG/IgM (test code = 97251-7) Non-reactive Non-reactive MARY CARMEN (test code = MARY CARMEN) Non-reactive - No serologic evidence of T. pallidum infection. Cannot exclude incubating or early syphilis. Submit a second specimen in 2-4 weeks if syphilis is clinically suspected. Equivocal - Further testing to follow. Reactive - Further testing to follow. Lab Interpretation (test code = 38148-8) Normal [facility] Center[facility] Screen - ONCE [id number] 02:47:35 * Test Item Value Reference Range Interpretation Comme nts ABO & RH (test code = 20) B POSITIVE Performed at [facility] Laboratory Services - [facility] Blood [address] Free: [phone] No. [id number] IAT (test code = 1185) Negative Performed at [facility] Laboratory Services - [facility] Blood [address] Free: [phone] No. [id number] [facility] CenterHepatitis B Surface [id number] 02:46:00 * Test Item Value Reference Range Interpretation Comme nts HBsAg Semi-Quantitative (lee t code = 5195-3) Negative Negative [facility] with [id number] 01:42:00* Test Item Value Reference Range Interpretation Comme nts WBC (test code = 6690-2) See_Comment H [Automated message] The system which generated this result transmitted reference range: 4.30 - 11.10 10*3/?L. The reference range was not used to interpret this result as normal/abnormal. RBC (test code = 789-8) See_Comment L [Automated message] The system which generated this result transmitted reference range: 3.93 - 5.25 10*6/?L. The reference range was not used to interpret this result as normal/abnormal. HGB (test code = 718-7) 11.5 g/dL 11.6-15 L HCT (test code = 4544-3) 32.8 % 35.7-45.2 L MCV (test code = 787-2) 87.9 fL 80.6-95.5 MCH (test code = 785-6) 30.8 pg 25.9-32.8 MCHC (test code = 786-4) 35.1 g/dL 31.6-35.1 RDW-SD (test code = 48064-6) 42.5 fL 39-49.9 RDW-CV (test code = 788-0) 13.3 % 12-15.5 PLT (test code = 777-3) See_Comment [Automated message] The system which generated this result transmitted reference range: 166 - 358 10*3/?L. The reference range was not used to interpret this result as normal/abnormal. MPV (test code = 76192-7) 11.5 fL 9.5-12.9 NRBC/100 WBC (test code = 0105871495) See_Comment [Automated message] The system which generated this result transmitted reference range: 0.0 - 10.0 /100 WBCs. The reference range was not used to interpret this result as normal/abnormal. NRBC x10^3 (test code = 0898565468) <0.01 See_Comment [Automated message] The system which generated this result transmitted reference range: 10*3/?L. The reference range was not used to interpret this result as normal/abnormal. GRAN MAT (NEUT) % (test code = 770-8) 72.3 % IMM GRAN % (test code = 3044892663) 1.20 % LYMPH % (test code = 736-9) 21.9 % MONO % (test code = 5905-5) 4.2 % EOS % (test code = 713-8) 0.3 % BASO % (test code = 706-2) 0.1 % GRAN MAT x10^3(ANC) (test code = 9239659542) 10.43 10*3/uL 1.88-7.09 H IMM GRAN x10^3 (test code = 5033299710) 0.17 10*3/uL 0-0.06 H LYMPH x10^3 (test code = 731-0) 3.16 10*3/uL 1.32-3.29 MONO x10^3 (test code = 742-7) 0.60 10*3/uL 0.33-0.92 EOS x10^3 (test code = 711-2) 0.04 10*3/uL 0.03-0.39 BASO x10^3 (test code = 704-7) <0.03 0.01-0.07 Lab Interpretation (test code = 62890-7) [facility]normal [facility] ([facility] NOW RAPID TESTING)2020-07-04 00:29:00* Test Item Value Reference Range Interpretation Comme nts SARS-CoV-2 Rapid ID NOW (test code = 30716-3) Not Detected Not Detected MARY CARMEN (test code = MARY CARMEN) ID NOW COVID-19 As say is an isothermal nucleic acid amplification test intended for the qualitative detection of nucleic acid from SARS-CoV-2 viral RNA in nasopharyngeal ([employer]) specimens. It is used under Emergency Use Authorization (EUA) by FDA. The limit of detection (LOD) of the assay is 125 Genome Equivalents/mL. A positive result is indicative of the presence of SARS-CoV-2 RNA. ?Clinical correlation with patient history and other diagnostic information is necessary to determine patient infection status. A negative (Not Detected) result does not preclude SARS-CoV-2 infection. In patients with clinical symptoms and other tests that are consistent with SARS-CoV-2 infection, negative results should be treated as presumptive negative and a new specimen should be tested with alternative PCR molecular test. Invalid: Please collect a new specimen for repeat patient testing if clinically indicated. Lab Interpretation (test code = 30922-6) Normal [facility] CenterPOW[facility] W SPECIFIC [id number] 15:10:00* Test Item Value Reference Range Interpretation Comme nts POCT U SP GRAV (test code = 3255) . 1.005-1.025 POCT PH U (test code = 3254) . 5-8 POCT U LEUK EST (test code = 3263) . Negative - Negative POCT U NIT (test code = 3262) . Negative - Negati ve POCT U PROT (test code = 3259) trace Negative - Negat meggan POCT U GLU (test code = 3256) negative Negative - Negati ve POCT U KETONE (test code = 3258) . Negative - Neg ative POCT U UROBILI (test code = 3260) . 0.2-1 POCT U BILI (test code = 3261) . Negative - Negat meggan POCT U BLD (test code = 3257) . Negative - Negati ve POCT U COLOR (test code = 3266) POCT U APPEAR (test code = 3267) [facility] URINALYSIS W SPECIFIC [id number] 14:05:00* Test Item Value Reference Range Interpretation Comme nts POCT U SP GRAV (test code = 3255) . 1.005-1.025 POCT PH U (test code = 3254) . 5-8 POCT U LEUK EST (test code = 3263) . Negative - Negative POCT U NIT (test code = 3262) . Negative - Negati ve POCT U PROT (test code = 3259) trace Negative - Negat meggan POCT U GLU (test code = 3256) negative Negative - Negati ve POCT U KETONE (test code = 3258) . Negative - Neg ative POCT U UROBILI (test code = 3260) . 0.2-1 POCT U BILI (test code = 3261) . Negative - Negat meggan POCT U BLD (test code = 3257) . Negative - Negati ve POCT U COLOR (test code = 3266) POCT U APPEAR (test code = 3267) [facility] URINALYSIS W SPECIFIC [id number] 14:55:00* Test Item Value Reference Range Interpretation Comme nts POCT U SP GRAV (test code = 3255) . 1.005-1.025 POCT PH U (test code = 3254) . 5-8 POCT U LEUK EST (test code = 3263) . Negative - N egative POCT U NIT (test code = 3262) . Negative - Negati ve POCT U PROT (test code = 3259) TRACE Negative - Negat meggan POCT U GLU (test code = 3256) neg Negative - Negati ve POCT U KETONE (test code = 3258) . Negative - Neg ative POCT U UROBILI (test code = 3260) . 0.2-1 POCT U BILI (test code = 3261) . Negative - Negat meggan POCT U BLD (test code = 3257) . Negative - Negati ve POCT U COLOR (test code = 3266) POCT U APPEAR (test code = 3267) [facility] URINALYSIS W SPECIFIC [id number] 14:48:00* Test Item Value Reference Range Interpretation Comme nts POCT U SP GRAV (test code = 3255) . 1.005-1.025 POCT PH U (test code = 3254) . 5-8 POCT U LEUK EST (test code = 3263) . Negative - N egative POCT U NIT (test code = 3262) . Negative - Negati ve POCT U PROT (test code = 3259) TRACE Negative - Negat meggan POCT U GLU (test code = 3256) NEG Negative - Negati ve POCT U KETONE (test code = 3258) . Negative - Neg ative POCT U UROBILI (test code = 3260) . 0.2-1 POCT U BILI (test code = 3261) . Negative - Negat meggan POCT U BLD (test code = 3257) . Negative - Negati ve POCT U COLOR (test code = 3266) POCT U APPEAR (test code = 3267) [facility] URINALYSIS W SPECIFIC [id number] 14:07:00* Test Item Value Reference Range Interpretation Comme nts POCT U SP GRAV (test code = 3255) . 1.005-1.025 POCT PH U (test code = 3254) . 5-8 POCT U LEUK EST (test code = 3263) . Negative - Negative POCT U NIT (test code = 3262) . Negative - Negati ve POCT U PROT (test code = 3259) trace Negative - Negat meggan POCT U GLU (test code = 3256) neg Negative - Negati ve POCT U KETONE (test code = 3258) . Negative - Neg ative POCT U UROBILI (test code = 3260) . 0.2-1 POCT U BILI (test code = 3261) . Negative - Negat meggan POCT U BLD (test code = 3257) . Negative - Negati ve POCT U COLOR (test code = 3266) POCT U APPEAR (test code = 3267) Lab Interpretation (test cod e = 35562-5) Abnormal [facility] URINALYSIS W SPECIFIC [id number] 14:07:00* Test Item Value Reference Range Interpretation Comme nts POCT U SP GRAV (test code = 3255) . 1.005-1.025 POCT PH U (test code = 3254) . 5-8 POCT U LEUK EST (test code = 3263) . Negative - Negative POCT U NIT (test code = 3262) . Negative - Negati ve POCT U PROT (test code = 3259) trace Negative - Negat meggan POCT U GLU (test code = 3256) neg Negative - Negati ve POCT U KETONE (test code = 3258) . Negative - Neg ative POCT U UROBILI (test code = 3260) . 0.2-1 POCT U BILI (test code = 3261) . Negative - Negat meggan POCT U BLD (test code = 3257) . Negative - Negati ve POCT U COLOR (test code = 3266) POCT U APPEAR (test code = 3267) Lab Interpretation (test cod e = 55743-5) [facility]IFIC [id number] 14:14:00* Test Item Value Reference Range Interpretation Comme nts POCT U SP GRAV (test code = 3255) . 1.005-1.025 POCT PH U (test code = 3254) . 5-8 POCT U LEUK EST (test code = 3263) . Negative - N egative POCT U NIT (test code = 3262) . Negative - Negati ve POCT U PROT (test code = 3259) trace Negative - Negat meggan POCT U GLU (test code = 3256) neg Negative - Negati ve POCT U KETONE (test code = 3258) . Negative - Neg ative POCT U UROBILI (test code = 3260) . 0.2-1 POCT U BILI (test code = 3261) . Negative - Negat meggan POCT U BLD (test code = 3257) . Negative - Negati ve POCT U COLOR (test code = 3266) POCT U APPEAR (test code = 3267) [facility] URINALYSIS W SPECIFIC [id number] 14:14:00* Test Item Value Reference Range Interpretation Comme nts POCT U SP GRAV (test code = 3255) . 1.005-1.025 POCT PH U (test code = 3254) . 5-8 POCT U LEUK EST (test code = 3263) . Negative - N egative POCT U NIT (test code = 3262) . Negative - Negati ve POCT U PROT (test code = 3259) trace Negative - Negat meggan POCT U GLU (test code = 3256) neg Negative - Negati ve POCT U KETONE (test code = 3258) . Negative - Neg ative POCT U UROBILI (test code = 3260) . 0.2-1 POCT U BILI (test code = 3261) . Negative - Negat meggan POCT U BLD (test code = 3257) . Negative - Negati ve POCT U COLOR (test code = 3266) POCT U APPEAR (test code = 3267) [facility] URINALYSIS W SPECIFIC [id number] 14:14:00* Test Item Value Reference Range Interpretation Comme nts POCT U SP GRAV (test code = 3255) . 1.005-1.025 POCT PH U (test code = 3254) . 5-8 POCT U LEUK EST (test code = 3263) . Negative - N egative POCT U NIT (test code = 3262) . Negative - Negati ve POCT U PROT (test code = 3259) trace Negative - Negat meggan POCT U GLU (test code = 3256) neg Negative - Negati ve POCT U KETONE (test code = 3258) . Negative - Neg ative POCT U UROBILI (test code = 3260) . 0.2-1 POCT U BILI (test code = 3261) . Negative - Negat meggan POCT U BLD (test code = 3257) . Negative - Negati ve POCT U COLOR (test code = 3266) POCT U APPEAR (test code = 3267) [facility] URINALYSIS W SPECIFIC [id number] 13:57:00* Test Item Value Reference Range Interpretation Comme nts POCT U SP GRAV (test code = 3255) . 1.005-1.025 POCT PH U (test code = 3254) . 5-8 POCT U LEUK EST (test code = 3263) . Negative - N egative POCT U NIT (test code = 3262) . Negative - Negati ve POCT U PROT (test code = 3259) Trace Negative - Negat meggan POCT U GLU (test code = 3256) Neg Negative - Negati ve POCT U KETONE (test code = 3258) . Negative - Neg ative POCT U UROBILI (test code = 3260) . 0.2-1 POCT U BILI (test code = 3261) . Negative - Negat meggan POCT U BLD (test code = 3257) . Negative - Negati ve POCT U COLOR (test code = 3266) POCT U APPEAR (test code = 3267) [facility] URINALYSIS W SPECIFIC [id number] 13:08:00* Test Item Value Reference Range Interpretation Comme nts POCT U SP GRAV (test code = 3255) . 1.005-1.025 POCT PH U (test code = 3254) . 5-8 POCT U LEUK EST (test code = 3263) . Negative - N egative POCT U NIT (test code = 3262) . Negative - Negati ve POCT U PROT (test code = 3259) trace Negative - Negat meggan POCT U GLU (test code = 3256) neg Negative - Negati ve POCT U KETONE (test code = 3258) . Negative - Neg ative POCT U UROBILI (test code = 3260) . 0.2-1 POCT U BILI (test code = 3261) . Negative - Negat meggan POCT U BLD (test code = 3257) . Negative - Negati ve POCT U COLOR (test code = 3266) POCT U APPEAR (test code = 3267) [facility] URINALYSIS W SPECIFIC [id number] 13:08:00* Test Item Value Reference Range Interpretation Comme nts POCT U SP GRAV (test code = 3255) . 1.005-1.025 POCT PH U (test code = 3254) . 5-8 POCT U LEUK EST (test code = 3263) . Negative - N egative POCT U NIT (test code = 3262) . Negative - Negati ve POCT U PROT (test code = 3259) trace Negative - Negat meggan POCT U GLU (test code = 3256) neg Negative - Negati ve POCT U KETONE (test code = 3258) . Negative - Neg ative POCT U UROBILI (test code = 3260) . 0.2-1 POCT U BILI (test code = 3261) . Negative - Negat meggan POCT U BLD (test code = 3257) . Negative - Negati ve POCT U COLOR (test code = 3266) POCT U APPEAR (test code = 3267) [facility] URINALYSIS W SPECIFIC [id number] 13:08:00* Test Item Value Reference Range Interpretation Comme nts POCT U SP GRAV (test code = 3255) . 1.005-1.025 POCT PH U (test code = 3254) . 5-8 POCT U LEUK EST (test code = 3263) . Negative - N egative POCT U NIT (test code = 3262) . Negative - Negati ve POCT U PROT (test code = 3259) trace Negative - Negat meggan POCT U GLU (test code = 3256) neg Negative - Negati ve POCT U KETONE (test code = 3258) . Negative - Neg ative POCT U UROBILI (test code = 3260) . 0.2-1 POCT U BILI (test code = 3261) . Negative - Negat meggan POCT U BLD (test code = 3257) . Negative - Negati ve POCT U COLOR (test code = 3266) POCT U APPEAR (test code = 3267) [facility] URINALYSIS W SPECIFIC [id number] 13:05:00* Test Item Value Reference Range Interpretation Comme nts POCT U SP GRAV (test code = 3255) . 1.005-1.025 POCT PH U (test code = 3254) . 5-8 POCT U LEUK EST (test code = 3263) . Negative - N egative POCT U NIT (test code = 3262) . Negative - Negati ve POCT U PROT (test code = 3259) trace Negative - Negat meggan POCT U GLU (test code = 3256) normal Negative - Negati ve POCT U KETONE (test code = 3258) . Negative - Neg ative POCT U UROBILI (test code = 3260) . 0.2-1 POCT U BILI (test code = 3261) . Negative - Negat meggan POCT U BLD (test code = 3257) . Negative - Negati ve POCT U COLOR (test code = 3266) POCT U APPEAR (test code = 3267) [facility] URINALYSIS W SPECIFIC [id number] 13:05:00* Test Item Value Reference Range Interpretation Comme nts POCT U SP GRAV (test code = 3255) . 1.005-1.025 POCT PH U (test code = 3254) . 5-8 POCT U LEUK EST (test code = 3263) . Negative - N egative POCT U NIT (test code = 3262) . Negative - Negati ve POCT U PROT (test code = 3259) trace Negative - Negat meggan POCT U GLU (test code = 3256) normal Negative - Negati ve POCT U KETONE (test code = 3258) . Negative - Neg ative POCT U UROBILI (test code = 3260) . 0.2-1 POCT U BILI (test code = 3261) . Negative - Negat meggan POCT U BLD (test code = 3257) . Negative - Negati ve POCT U COLOR (test code = 3266) POCT U APPEAR (test code = 3267) [facility] URINALYSIS W SPECIFIC [id number] 12:51:00* Test Item Value Reference Range Interpretation Comme nts POCT U SP GRAV (test code = 3255) . 1.005-1.025 POCT PH U (test code = 3254) . 5-8 POCT U LEUK EST (test code = 3263) . Negative - Negative POCT U NIT (test code = 3262) . Negative - Negati ve POCT U PROT (test code = 3259) trace Negative - Negat meggan POCT U GLU (test code = 3256) neg Negative - Negati ve POCT U KETONE (test code = 3258) . Negative - Neg ative POCT U UROBILI (test code = 3260) . 0.2-1 POCT U BILI (test code = 3261) . Negative - Negat meggan POCT U BLD (test code = 3257) . Negative - Negati ve POCT U COLOR (test code = 3266) POCT U APPEAR (test code = 3267) Lab Interpretation (test cod e = 82970-9) Abnormal [facility] URINALYSIS W SPECIFIC [id number] 12:51:00* Test Item Value Reference Range Interpretation Comme nts POCT U SP GRAV (test code = 3255) . 1.005-1.025 POCT PH U (test code = 3254) . 5-8 POCT U LEUK EST (test code = 3263) . Negative - Negative POCT U NIT (test code = 3262) . Negative - Negati ve POCT U PROT (test code = 3259) trace Negative - Negat meggan POCT U GLU (test code = 3256) neg Negative - Negati ve POCT U KETONE (test code = 3258) . Negative - Neg ative POCT U UROBILI (test code = 3260) . 0.2-1 POCT U BILI (test code = 3261) . Negative - Negat meggan POCT U BLD (test code = 3257) . Negative - Negati ve POCT U COLOR (test code = 3266) POCT U APPEAR (test code = 3267) Lab Interpretation (test cod e = 39194-0) Abnormal [facility] URINALYSIS W SPECIFIC [id number] 12:51:00* Test Item Value Reference Range Interpretation Comme nts POCT U SP GRAV (test code = 3255) . 1.005-1.025 POCT PH U (test code = 3254) . 5-8 POCT U LEUK EST (test code = 3263) . Negative - Negative POCT U NIT (test code = 3262) . Negative - Negati ve POCT U PROT (test code = 3259) trace Negative - Negat meggan POCT U GLU (test code = 3256) neg Negative - Negati ve POCT U KETONE (test code = 3258) . Negative - Neg ative POCT U UROBILI (test code = 3260) . 0.2-1 POCT U BILI (test code = 3261) . Negative - Negat meggan POCT U BLD (test code = 3257) . Negative - Negati ve POCT U COLOR (test code = 3266) POCT U APPEAR (test code = 3267) Lab Interpretation (test cod e = 19466-5) Abnormal [facility] URINALYSIS W SPECIFIC [id number] 12:59:00* Test Item Value Reference Range Interpretation Comme nts POCT U SP GRAV (test code = 3255) n/a 1.005-1.025 POCT PH U (test code = 3254) n/a 5-8 POCT U LEUK EST (test code = 3263) n/a Negative - N egative POCT U NIT (test code = 3262) n/a Negative - Negati ve POCT U PROT (test code = 3259) neg Negative - Negat meggan POCT U GLU (test code = 3256) neg Negative - Negati ve POCT U KETONE (test code = 3258) n/a Negative - Neg ative POCT U UROBILI (test code = 3260) n/a 0.2-1 POCT U BILI (test code = 3261) n/a Negative - Negat meggan POCT U BLD (test code = 3257) n/a Negative - Negati ve POCT U COLOR (test code = 3266) POCT U APPEAR (test code = 3267) [facility] URINALYSIS W SPECIFIC [id number] 16:08:00* Test Item Value Reference Range Interpretation Comme nts POCT U SP GRAV (test code = 3255) . 1.005-1.025 POCT PH U (test code = 3254) . 5-8 POCT U LEUK EST (test code = 3263) . Negative - N egative POCT U NIT (test code = 3262) . Negative - Negati ve POCT U PROT (test code = 3259) neg Negative - Negat meggan POCT U GLU (test code = 3256) neg Negative - Negati ve POCT U KETONE (test code = 3258) . Negative - Neg ative POCT U UROBILI (test code = 3260) . 0.2-1 POCT U BILI (test code = 3261) . Negative - Negat meggan POCT U BLD (test code = 3257) . Negative - Negati ve POCT U COLOR (test code = 3266) POCT U APPEAR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
[2024-08-18] MEDS ORDERED: KETOROLAC 30 MG/ML INJ ONE (20:52)
[2024-08-18] MEDS ORDERED: dexAMETHasone 10 MG/ML VIAL ONE (20:52)
[2024-08-18] MEDS ORDERED: HYDROCODONE/APAP 5/325 MG TAB ONE (20:53)
[2024-08-18] MEDS ORDERED: CYCLOBENZAPRINE 10 MG TAB ONE (20:53)
--- NOTE | 2024-08-18 22:14 | RAD REPORT ---
EXAMINATION: CT LUMBAR SPINE WITHOUT CONTRAST CLINICAL INDICATION: Female, 29 years old. PAIN TECHNIQUE: Axial CT images were obtained through the lumbar spine in soft tissue and bone windows wit hout intravenous contrast. Coronal and Sagittal reformatted images were created from the data set. One or more of the following dose reduction techniques were used: Automated exposure control, adjustm ent of the mA and/ or kV according to patient size, and/or iterative reconstruction. Unless otherwise specified, incidental findings do not require dedicated imaging follow-up. [id number]. COMPARISON: No prior exam. FINDINGS: For purposes of this dictation, it is assumed that there are 5 non rib-bearing lumbar type vertebrae, and the most caudal fully segmented lumbar vertebra is labeled L5. ALIGNMENT: The lumbar spine demonstrates normal alignment without scoliosis or spondylolisthesis. BONES: No significant soft tissue abnormalities. No aggressive osseous lesions. DISCS: Mild broad-based disc bulge at L4-5 and L5-S1 without significant neural foraminal narrowing a nd central spinal stenosis. LEVELS: No significant central spinal stenosis. SOFT TISSUE: Pelvic free fluid which is likely physiologic. Normal appendix. IMPRESSION: No acute lumbar spine abnormalities.
--- NOTE | 2024-08-18 22:23 | ER ---
Nurse's Notes [facility] Name: Rayne Abreu Age: 29 yrs Sex: Female : 1995 Arrival Date: 08/18/2024 Time: 19:16 Bed DX3 Private MD: Diagnosis: Acute back pain Presentation: 08/18 20:30 Chief complaint: Patient states: SUDDEN ONSET OF BACK PAIN AFTER LIFTING HER KID. ha1 20:30 Coronavirus screen: Client denies travel out of the [place] in the last 14 days. Ebola ha1 Screen: No symptoms or risks identified at this time. Initial Sepsis Screen: Does the patient meet any 2 criteria? No. Patient's initial sepsis screen is negative. Does the patient have a suspected source of infection? No. Patient's initial sepsis screen is negative. Risk Assessment: Do you want to hurt yourself or someone else? Patient reports no desire to harm self or others. Onset of symptoms was August 18, 2024. 20:30 Method Of Arrival: Wheelchair ha1 20:30 Acuity: LATRICE 4 ha1 Triage Assessment: 20:28 General: Appears uncomfortable, Behavior is calm, cooperative. Pain: Complains of pain ha1 in back Pain does not radiate. Pain currently is 9 out of 10 on a pain scale. Neuro: Level of Consciousness is awake, alert, obeys commands, Oriented to person, place, time, situation. Cardiovascular: Patient's skin is warm and dry. Respiratory: Airway is patent Respiratory effort is even, unlabored, Respiratory pattern is regular, symmetrical. GI: No signs and/or symptoms were reported involving the gastrointestinal system. : No signs and/or symptoms were reported regarding the genitourinary system. Derm: Skin is pink, warm \T\ dry. Musculoskeletal: Reports pain in back. Historical: - Allergies: 21:04 No Known Allergies; ha1 - PMHx: 21:04 None; ha1 - PSHx: 21:04 Tonsillectomy; section; TUBAL LIGATION; ha1 - Immunization history:: Adult Immunizations up to date. - Infectious Disease History:: Denies. - Social history:: Smoking status: Patient denies any tobacco usage or history of. - Family history:: not pertinent. Screenin:00 [facility] ED Fall Risk Assessment (Adult) History of falling in the last 3 months, ha1 including since admission No falls in past 3 months (0 pts) Confusion or Disorientation No (0 pts) Intoxicated or Sedated No (0 pts) Impaired Gait No (0 pts) Mobility Assist Device Used No (0 pt) Altered Elimination No (0 pt) Score/Fall Risk Level 0 - 2 = Low Risk Oriented to surroundings, Maintained a safe environment, Educated pt \T\ family on fall prevention, incl call for assistance when getting out of bed, Hourly rounding (assess needs \T\ fall precautionary measures) done. Abuse screen: Denies threats or abuse. Denies injuries from another. Nutritional screening: No deficits noted. Tuberculosis screening: No symptoms or risk factors identified. Assessment: 20:25 Reassessment: see triage assessment. ha1 21:40 Reassessment: Patient and/or family updated on plan of care and expected duration. Pain ha1 level reassessed. Patient is alert, oriented x 3, equal unlabored respirations, skin warm/dry/pink. Patient states feeling better. Patient states symptoms have improved. 22:39 Reassessment: Patient and/or family updated on plan of care and expected duration. Pain ha1 level reassessed. Patient is alert, oriented x 3, equal unlabored respirations, skin warm/dry/pink. pain 4/10 Patient states feeling better. Patient states symptoms have improved. Vital Signs: 20:30 BP 117 / 69; Pulse 82; Resp 17 S; Temp 97.6(T); Pulse Ox 99% on R/A; Weight 95.25 kg; ha1 Height 5 ft. 5 in. ; Pain 9/10; 22:40 BP 118 / 71; Pulse 74; Resp 17 S; Pulse Ox 100% on R/A; ha1 20:30 Body Mass Index 34.95 (95.25 kg, 165.1 cm) ha1 20:30 Pain Scale: Adult ha1 ED Course: 19:22 Patient arrived in ED. gm2 19:45 Ammon Lau MD is Attending Physician. rt 20:28 Patient has correct armband on for positive identification. Bed in low position. Call ha1 light in reach. Side rails up X 1. Adult w/ patient. 20:28 Provided Education on: plan of care . ha1 20:56 Radiology exam delayed due to test not completed at this time. sm9 21:00 Arm band placed on right wrist. ha1 21:04 Triage completed. ha1 21:53 CT Lumbar Spine Wo Con In Process Unspecified. EDMS 22:41 No provider procedures requiring assistance completed. Patient did not have IV access ha1 during this emergency room visit. Administered Medications: 21:00 Drug: Decadron - Dexamethasone IVP 10 mg IVP once {Note: GIVEN IM LEFT LEFTOID .} ha1 Route: IVP; Site: right upper arm; :40 Follow up: Response: No adverse reaction; Marked relief of symptoms ha1 21:01 Drug: Ketorolac IVP 15 mg IVP once {Note: RIGHT DELTOID .} Route: IVP; Site: Other; ha1 21:40 Follow up: Response: No adverse reaction; Marked relief of symptoms; Pain is decreased ha1 21:02 Drug: [place] PO 5 mg-325 mg 1 tabs PO once Route: PO; ha1 21:40 Follow up: Response: No adverse reaction; Marked relief of symptoms; Pain is decreased; ha1 RASS: Alert and Calm (0) 21:02 Drug: Cyclobenzaprine PO 10 mg PO once Route: PO; ha1 21:40 Follow up: Response: No adverse reaction; Marked relief of symptoms ha1 Medication: 22:41 VIS not applicable for this client. ha1 Outcome: 22:22 Discharge ordered by . rt 22:41 Discharged to home ambulatory, with family, ha1 22:41 Condition: stable 22:41 Discharge instructions given to patient, family, Instructed on discharge instructions, follow up and referral plans. medication usage, Demonstrated understanding of instructions, follow-up care, medications, Prescriptions given X 3, 22:42 Patient left the ED. ha1 Signatures: Dispatcher [employer] EDMS Zoila Stanley RN RN ha1 Ammon Lau MD MD rt [place] 2 Bridget Hogue 9
--- NOTE | 2024-08-18 22:23 | EDPHYS ---
Physician Documentation [facility] Name: Rayne Abreu Age: 29 yrs Sex: Female : 1995 Arrival Date: 08/18/2024 Time: 19:16 Bed DX3 Private MD: ED Physician Ammon Lau HPI: 08/19 03:43 This 29 yrs old Female presents to ER via Wheelchair with complaints of Low Back Pain, rt CANT STAND UP STRAIGHT. 03:43 Patient presents to the ED with an acute back pain that occurred after lifting her rt 4-year-old child into a car. Patient subsequently drove about 3 hours. Reports continued pain to the lower back, worse on the left side. States that is difficult for her to stand up due to the pain. Denies other acute complaints at this time, denies numbness, tingling. Symptoms are moderate severity, no other aggravating or alleviating factors.. Historical: - Allergies: 08/18 21:04 No Known Allergies; ha1 - PMHx: 21:04 None; ha1 - PSHx: 21:04 Tonsillectomy; section; TUBAL LIGATION; ha1 - Immunization history:: Adult Immunizations up to date. - Infectious Disease History:: Denies. - Social history:: Smoking status: Patient denies any tobacco usage or history of. - Family history:: not pertinent. ROS: 08/19 03:43 Constitutional: Negative for fever, chills, and weight loss, Cardiovascular: Negative rt for chest pain, palpitations, and edema, Respiratory: Negative for shortness of breath, cough, wheezing, and pleuritic chest pain, Abdomen/GI: Negative for abdominal pain, nausea, vomiting, diarrhea, and constipation, Skin: Negative for injury, rash, and discoloration, Neuro: Negative for headache, weakness, numbness, tingling, and seizure, Back: Positive for pain at rest, pain with movement, Exam: 03:43 Constitutional: This is a well developed, well nourished patient who is awake, alert, rt and in no acute distress. Head/Face: Normocephalic, atraumatic. Neck: Trachea midline, no thyromegaly or masses palpated, and no cervical lymphadenopathy. Supple, full range of motion without nuchal rigidity, or vertebral point tenderness. No Meningismus. Chest/axilla: Normal chest wall appearance and motion. Nontender with no deformity. No lesions are appreciated. Cardiovascular: Regular rate and rhythm with a normal S1 and S2. No gallops, murmurs, or rubs. Normal PMI, no JVD. No pulse deficits. Respiratory: Lungs have equal breath sounds bilaterally, clear to auscultation and percussion. No rales, rhonchi or wheezes noted. No increased work of breathing, no retractions or nasal flaring. Abdomen/GI: Soft, non-tender, with normal bowel sounds. No distension or tympany. No guarding or rebound. No evidence of tenderness throughout. Skin: Warm, dry with normal turgor. Normal color with no rashes, no lesions, and no evidence of cellulitis. MS/ Extremity: Pulses equal, no cyanosis. Neurovascular intact. Full, normal range of motion. Neuro: Awake and alert, GCS 15, oriented to person, place, time, and situation. Cranial nerves II-XII grossly intact. Motor strength 5/5 in all extremities. Sensory grossly intact. Cerebellar exam normal. Normal gait. 03:43 Back: Tenderness to the paraspinal region of the mid lumbar spine, no midline tenderness, no step-offs, Vital Signs: 08/18 20:30 BP 117 / 69; Pulse 82; Resp 17 S; Temp 97.6(T); Pulse Ox 99% on R/A; Weight 95.25 kg; ha1 Height 5 ft. 5 in. ; Pain 9/10; 22:40 BP 118 / 71; Pulse 74; Resp 17 S; Pulse Ox 100% on R/A; ha1 20:30 Body Mass Index 34.95 (95.25 kg, 165.1 cm) ha1 20:30 Pain Scale: Adult ha1 MDM: 20:32 Medical Screening Exam initiated rt 08/19 03:43 Differential diagnosis: Herniated disc, musculoskeletal pain. Data reviewed: vital rt signs, nurses notes, radiologic studies. I considered the following discharge prescriptions or medication management in the emergency department Medications were administered in the Emergency Department. See MAR. Independent interpretation of the following test(s) in the Emergency Department CT Scan: My interpretation is No compression fracture seen on my interpretation of CT scan images. Test considered but Not performed: MRI: No red flag symptoms to suggest cauda equina syndrome, spinal epidural abscess, MRI of the spine is not indicated. Counseling: I had a detailed discussion with the patient and/or guardian regarding the historical points, exam findings, and any diagnostic results supporting the discharge/admit diagnosis, radiology results, the need for outpatient follow up, to return to the emergency department if symptoms worsen or persist or if there are any questions or concerns that arise at home. Response to treatment: the patient's symptoms have mildly improved after treatment. 08/18 20:33 Order name: CT Lumbar Spine Wo Con; Complete Time: 22:18 rt Administered Medications: 08/18 21:00 Drug: Decadron - Dexamethasone IVP 10 mg IVP once {Note: GIVEN IM LEFT LEFTOID .} ha1 Route: IVP; Site: right upper arm; 21:40 Follow up: Response: No adverse reaction; Marked relief of symptoms ha1 21:01 Drug: Ketorolac IVP 15 mg IVP once {Note: RIGHT DELTOID .} Route: IVP; Site: Other; ha1 21:40 Follow up: Response: No adverse reaction; Marked relief of symptoms; Pain is decreased ha1 21:02 Drug: [place] PO 5 mg-325 mg 1 tabs PO once Route: PO; ha1 21:40 Follow up: Response: No adverse reaction; Marked relief of symptoms; Pain is decreased; ha1 RASS: Alert and Calm (0) 21:02 Drug: Cyclobenzaprine PO 10 mg PO once Route: PO; ha1 21:40 Follow up: Response: No adverse reaction; Marked relief of symptoms ha1 Disposition Summary: 08/18/24 22:22 Discharge Ordered Notes: Location: Home rt Problem: new rt Symptoms: have improved rt Condition: Stable rt Diagnosis - Acute back pain rt Followup: rt - With: Private Physician - When: 2 - 3 days - Reason: Discharge Instructions: - Discharge Summary Sheet rt - Acute Back Pain, Adult rt Forms: - Medication Reconciliation Form rt - Antibiotic Education rt - Prescription Opioid Use rt - Patient Portal Instructions rt - Leadership Thank You Letter rt Prescriptions: - Lidoderm 5 % Topical adhesive patch, medicated - apply 1 patch TOPICAL route once leave on most painful area for up to 12 hrs; rt 10 patch; Refills: 0, Product Selection Permitted - Medrol (Fantasma) 4 mg Oral Tablets, Dose Pack - take 1 tablet ORAL route as directed - follow package instructions; 1 packet; rt Refills: 0, Product Selection Permitted - Cyclobenzaprine 5 mg Oral Tablet - take 1 tablet ORAL route 3 times per day As needed; 15 tablet; Refills: 0, rt Product Selection Permitted Signatures: Dispatcher [employer] Zoila Wiseman RN RN ha1 Ammon Lau MD MD rt
[2024-08-18 22:46] VITALS: TEMP 97.6
[2024-08-18 22:48] VITALS: BP 118/71; O2SAT 100
== END 2024-08-18 22:42 | disposition home or self-care (01) ==
LOC: ER 19:16
DX: M54.50 Low back pain, unspecified (principal)
CPT/HCPCS: 72131; 99284; J1100